=== PATIENT | female | born 1945 | race Caucasian/White ===

== ENCOUNTER 2016-07-10 04:55 | Inpatient (IN) | payer OTHER ==
[~2016-07-10] VITALS: Ht 172.7 cm; Wt 91.4 kg
[2016-07-10] VITALS (13 sets, daily range): BP systolic 126–145; BP diastolic 62–84
[~2016-07-10 04:55] MED LIST: ALPR-475 PO; LISI-170 PO; METO-99 PO; SIMV5TAB5 PO
[2016-07-10] MEDS ORDERED: PANTOPRAZOLE 80 MG in SODIUM CHLORIDE 0.9% 50 ML IVPB ONE (05:02)
[2016-07-10] MEDS ORDERED: PANTOPRAZOLE 80 MG in SODIUM CHLORIDE 0.9% 100 ML IV SCH (05:02)
[2016-07-10] MEDS ORDERED: OCTREOTIDE 500 MCG in SODIUM CHLORIDE 0.9% 249 ML IV PRN (05:02)
[2016-07-10] MEDS ORDERED: LORazepam 2 MG/ML, 1ML IVPush ONE (05:30)
[2016-07-10] MEDS ORDERED: SODIUM CHLORIDE 0.9% 1,000ML IVBOLUS ONE (05:30)
[2016-07-10] MEDS ORDERED: SODIUM CHLORIDE FLUSH 10ML SYR IVF ONE (05:30)
[2016-07-10] MEDS ORDERED: OCTREOTIDE 100MCG/ML, 1ML (0.1MG/ML) IV ONE (05:30)
[2016-07-10] MEDS ORDERED: LORazepam 2 MG/ML, 1ML ONE (05:35)
[2016-07-10] MEDS ORDERED: OCTREOTIDE 100MCG/ML, 1ML (0.1MG/ML) ONE (05:36)
[2016-07-10 05:49] LABS: HEMOGLOBIN 8.6 g/dL (11.7-16.4)
[2016-07-10] MEDS ORDERED: ONDANSETRON 2MG/ML, 2ML ONE (06:00)
[2016-07-10] MEDS ORDERED: ONDANSETRON 2MG/ML, 2ML IVPush ONE (06:00)
[2016-07-10 06:02] LABS: BLOOD UREA NITROGEN 31 mg/dL (7-18)
[2016-07-10 06:07] LABS: ASPARTATE AMINO TRANSFERASE 31 U/L (15-37)
[2016-07-10] MEDS ORDERED: CEFTRIAXONE PMX 1GM/50ML 50 ML ONE (06:55)
[2016-07-10] MEDS ORDERED: CEFTRIAXONE PMX 1GM/50ML 50 ML IV ONE (07:00)
[2016-07-10] MEDS: SODIUM CHLORIDE 0.9% 1,000 ML IV SCH ×2 (08:08→12:09)
[2016-07-10] MEDS ORDERED: ONDANSETRON ODT 4 MG PO PRN (08:30)
[2016-07-10] MEDS ORDERED: BISACODYL 10 MG SUPP PR PRN (08:30)
[2016-07-10] MEDS ORDERED: LABETALOL 5MG/ML, 20ML IV PRN (08:30)
[2016-07-10] MEDS ORDERED: ONDANSETRON 2MG/ML, 2ML IVP PRN (08:30)
[2016-07-10] MEDS ORDERED: OCTREOTIDE 500 MCG in SODIUM CHLORIDE 0.9% 249 ML IV SCH (09:00)
[2016-07-10 11:43] LABS: HEMOGLOBIN 8.7 g/dL (11.7-16.4)
[2016-07-10] MEDS: PANTOPRAZOLE 80 MG in SODIUM CHLORIDE 0.9% 100 ML IV SCH (12:09)
[2016-07-10] MEDS ORDERED: THIAMINE 100 MG, FOLIC ACID 1 MG, MVI ADULT 10 ML in SODIUM CHLORIDE 0.9% 1,000 ML IV SCH (15:30)
[2016-07-10] MEDS ORDERED: MAGNESIUM SULFATE PMX 4GM/100M 100 ML IV ONE (17:30)
[2016-07-10 18:29] LABS: HEMOGLOBIN 7.8 g/dL (11.7-16.4)
[2016-07-11] VITALS (8 sets, daily range): BP systolic 130–177; BP diastolic 75–88
[2016-07-11] MEDS: SODIUM CHLORIDE 0.9% 1,000 ML IV SCH ×3 (01:28→17:08)
[2016-07-11] MEDS: PANTOPRAZOLE 80 MG in SODIUM CHLORIDE 0.9% 100 ML IV SCH (01:40)
[2016-07-11 03:24] LABS: ASPARTATE AMINO TRANSFERASE 22 U/L (15-37); BLOOD UREA NITROGEN 20 mg/dL (7-18)
[2016-07-11 03:54] LABS: HEMOGLOBIN 8.8 g/dL (11.7-16.4)
[2016-07-11] MEDS ORDERED: OCTREOTIDE 500 MCG in SODIUM CHLORIDE 0.9% 249 ML IV SCH ×2 (04:26→04:31)
[2016-07-11] MEDS ORDERED: POTASSIUM CHLORIDE 40 MEQ in SODIUM CHLORIDE 0.9% 500 ML IV ONE (08:00)
[2016-07-11 09:20] LABS: HEMOGLOBIN 8.9 g/dL (11.7-16.4)
[2016-07-11] MEDS: CEFTRIAXONE PMX 1GM/50ML 50 ML IV SCH (09:30)
[2016-07-11] MEDS: ACETAMINOPHEN 325 MG TABLET PO PRN ×2 (10:12→16:58)
[2016-07-11] MEDS ORDERED: FENTANYL PF 100 MCG/2ML ONE (12:26)
[2016-07-11] MEDS ORDERED: MIDAZOLAM 1 MG/ML, 5ML ONE (12:26)
[2016-07-11 15:07] LABS: HEMOGLOBIN 9.1 g/dL (11.7-16.4)
[2016-07-11 15:19] LABS: IS PT STATUS REG ER OR PRE ER? NO
[2016-07-11 19:29] LABS: IS PT STATUS REG ER OR PRE ER? NO
[2016-07-11] MEDS: PANTOPROZOLE 40MG TABLET PO SCH (20:11)
[2016-07-11] MEDS: LORazepam 2 MG/ML, 1ML IVPush PRN (20:11)
[2016-07-11] MEDS: MORPHINE SULFATE 4 MG/ML, 1ML IVPush PRN ×2 (21:49→23:43)
[2016-07-12 01:19] VITALS: BP_SYST 143; BP_SYST 155; BP_SYST 167; BP_DIAS 83; BP_DIAS 91; BP_DIAS 95
[2016-07-12 01:36] LABS: IS PT STATUS REG ER OR PRE ER? NO
[2016-07-12] MEDS: MORPHINE SULFATE 4 MG/ML, 1ML IVPush PRN ×4 (02:03→22:50)
[2016-07-12] MEDS: LORazepam 2 MG/ML, 1ML IVPush PRN ×3 (05:24→13:48)
[2016-07-12 05:44] LABS: HEMOGLOBIN 8.8 g/dL (11.7-16.4)
[2016-07-12 05:57] LABS: BLOOD UREA NITROGEN 10 mg/dL (7-18)
[2016-07-12 07:00] VITALS: BP_SYST 143; BP_SYST 160; BP_SYST 163; BP_DIAS 81; BP_DIAS 93; BP_DIAS 95
[2016-07-12] MEDS: CEFTRIAXONE PMX 1GM/50ML 50 ML IV SCH (07:54)
[2016-07-12] MEDS: PANTOPROZOLE 40MG TABLET PO SCH ×2 (07:54→22:35)
[2016-07-12] MEDS ORDERED: SODIUM CHLORIDE 0.9% 1,000 ML IV SCH (08:08)
[2016-07-12 09:19] LABS: HEMOGLOBIN 9.7 g/dL (11.7-16.4)
[2016-07-12] MEDS ORDERED: DILTIAZEM 5 MG/ML, 5ML IVPush STA (10:01)
[2016-07-12] MEDS ORDERED: DILTIAZEM 125 MG in SODIUM CHLORIDE 0.9% 100 ML IV PRN (10:30)
[2016-07-12 11:10] LABS: IS PT STATUS REG ER OR PRE ER? NO
[2016-07-12 12:59] VITALS: BP_SYST 102; BP_SYST 121; BP_SYST 132; BP_DIAS 66; BP_DIAS 81; BP_DIAS 99
[2016-07-12] MEDS ORDERED: AMIODARONE 900 MG in DEXTROSE 5% 482 ML IV PRN (14:30)
[2016-07-12] MEDS ORDERED: AMIODARONE 150 MG in DEXTROSE 5% 100 ML IV ONE (14:30)
[2016-07-12] MEDS ORDERED: FILTER 0.22 MICRON FOR AMIODARONE IV PRN (14:30)
[2016-07-12 16:18] LABS: IS PT STATUS REG ER OR PRE ER? NO
[2016-07-12 20:00] VITALS: BP_SYST 138; BP_SYST 154; BP_SYST 155; BP_DIAS 84; BP_DIAS 94
[2016-07-12 22:35] LABS: IS PT STATUS REG ER OR PRE ER? NO
[2016-07-12] MEDS: SODIUM CHLORIDE 0.9% 1,000 ML IV SCH (22:36)
[2016-07-13 01:45] VITALS: BP 149/87
[2016-07-13] MEDS: MORPHINE SULFATE 4 MG/ML, 1ML IVPush PRN ×4 (01:48→20:53)
[2016-07-13 06:00] LABS: HEMOGLOBIN 8.6 g/dL (11.7-16.4)
[2016-07-13 06:08] LABS: BLOOD UREA NITROGEN 6 mg/dL (7-18)
[2016-07-13] MEDS: SODIUM CHLORIDE 0.9% 1,000 ML IV SCH (06:22)
[2016-07-13 07:16] VITALS: BP_SYST 118; BP_SYST 158; BP_DIAS 74; BP_DIAS 87; BP_DIAS 89
[2016-07-13] MEDS ORDERED: POTASSIUM CHLORIDE 20 MEQ TAB.ER.PRT PO ONE (08:00)
[2016-07-13] MEDS ORDERED: MAGNESIUM SULFATE PMX 2GM/50ML 50 ML IV ONE (08:00)
[2016-07-13] MEDS ORDERED: SODIUM CHLORIDE 0.9% 1,000 ML IV SCH (08:08)
[2016-07-13] MEDS: CEFTRIAXONE PMX 1GM/50ML 50 ML IV SCH (08:59)
[2016-07-13] MEDS: PANTOPROZOLE 40MG TABLET PO SCH ×2 (09:02→20:52)
[2016-07-13 09:36] LABS: HEMOGLOBIN 9.2 g/dL (11.7-16.4)
[2016-07-13] MEDS ORDERED: DILTIAZEM 125 MG in SODIUM CHLORIDE 0.9% 100 ML IV PRN (10:30)
[2016-07-13] MEDS: AMIODARONE 200 MG TABLET PO SCH ×2 (11:12→20:52)
[2016-07-13 12:30] VITALS: BP_SYST 153; BP_SYST 154; BP_SYST 161; BP_DIAS 85; BP_DIAS 88; BP_DIAS 89
[2016-07-13] MEDS ORDERED: GADOBUTROL 7.5 MMOL/7.5 ML PFS ONE (16:46)
[2016-07-13 19:48] VITALS: BP_SYST 168; BP_SYST 172; BP_DIAS 90; BP_DIAS 92; BP_DIAS 98
[2016-07-13] MEDS: ATORVASTATIN 80 MG TABLET PO SCH (23:32)
[2016-07-14] MEDS: ACETAMINOPHEN 325 MG TABLET PO PRN (00:01)
[2016-07-14 00:02] VITALS: BP 173/92
[2016-07-14] MEDS: LORazepam 2 MG/ML, 1ML IVPush PRN (00:02)
[2016-07-14 03:01] VITALS: BP 146/90
[2016-07-14] MEDS: MORPHINE SULFATE 4 MG/ML, 1ML IVPush PRN (05:38)
[2016-07-14 05:59] LABS: BLOOD UREA NITROGEN 3 mg/dL (7-18)
[2016-07-14 06:48] VITALS: BP_SYST 128; BP_SYST 137; BP_SYST 144; BP_DIAS 77; BP_DIAS 84; BP_DIAS 85
[2016-07-14] MEDS: AMIODARONE 200 MG TABLET PO SCH ×2 (09:42→20:24)
[2016-07-14] MEDS: PANTOPROZOLE 40MG TABLET PO SCH ×2 (09:42→20:25)
[2016-07-14] MEDS: CEFTRIAXONE PMX 1GM/50ML 50 ML IV SCH (09:42)
[2016-07-14] MEDS: DOCUSATE 100 MG CAPSULE PO PRN (09:46)
[2016-07-14] MEDS: METOPROLOL TARTRATE 50 MG TABLET PO SCH ×2 (11:48→18:08)
[2016-07-14] MEDS: LISINOPRIL 5 MG TABLET PO SCH (11:48)
[2016-07-14] MEDS: OXYcodone IR 5MG TABLET PO PRN ×3 (11:53→20:25)
[2016-07-14 12:29] LABS: PATH.CAST-FLAG NOT PRESENT; SPERM-FLAG NOT PRESENT; SRC-FLAG NOT PRESENT; XTAL-FLAG NOT PRESENT; YLC-FLAG NOT PRESENT
[2016-07-14 13:41] VITALS: BP 133/83
[2016-07-14 20:23] VITALS: BP 165/101
[2016-07-14] MEDS: ATORVASTATIN 80 MG TABLET PO SCH (20:24)
[2016-07-15] MEDS: OXYcodone IR 5MG TABLET PO PRN ×5 (02:31→20:49)
[2016-07-15 03:55] VITALS: BP 157/96
[2016-07-15 06:03] LABS: HEMOGLOBIN 9.2 g/dL (11.7-16.4)
[2016-07-15 06:14] LABS: BLOOD UREA NITROGEN 6 mg/dL (7-18)
[2016-07-15] MEDS: METOPROLOL TARTRATE 50 MG TABLET PO SCH ×2 (06:30→18:07)
[2016-07-15 06:49] VITALS: BP_SYST 147; BP_SYST 153; BP_SYST 160; BP_DIAS 81; BP_DIAS 88; BP_DIAS 99
[2016-07-15] MEDS ORDERED: MAGNESIUM SULFATE PMX 4GM/100M 100 ML IV ONE (08:30)
[2016-07-15] MEDS: CEFTRIAXONE PMX 1GM/50ML 50 ML IV SCH (08:30)
[2016-07-15] MEDS: PANTOPROZOLE 40MG TABLET PO SCH ×2 (09:18→20:49)
[2016-07-15] MEDS: LISINOPRIL 5 MG TABLET PO SCH (09:19)
[2016-07-15] MEDS: AMIODARONE 200 MG TABLET PO SCH ×2 (09:19→20:49)
[2016-07-15] MEDS: DOCUSATE 100 MG CAPSULE PO PRN ×2 (09:26→20:49)
[2016-07-15] MEDS ORDERED: GADOBUTROL 10 MMOL/10 ML PFS ONE (10:28)
[2016-07-15 12:53] VITALS: BP 132/84
[2016-07-15] MEDS: IRON SUCROSE COMPLEX 100MG/5ML IV SCH ×2 (16:30→16:35)
[2016-07-15 19:09] VITALS: BP 147/92
[2016-07-15 19:15] VITALS: BP 147/92
[2016-07-15] MEDS: ATORVASTATIN 80 MG TABLET PO SCH (20:49)
[2016-07-16 02:32] VITALS: BP 110/70
[2016-07-16] MEDS: OXYcodone IR 5MG TABLET PO PRN ×3 (03:16→17:43)
[2016-07-16 05:33] LABS: HEMOGLOBIN 8.7 g/dL (11.7-16.4)
[2016-07-16 06:02] LABS: BLOOD UREA NITROGEN 6 mg/dL (7-18)
[2016-07-16] MEDS: METOPROLOL TARTRATE 50 MG TABLET PO SCH ×2 (06:30→17:45)
[2016-07-16 08:15] VITALS: BP 116/68
[2016-07-16] MEDS ORDERED: LISINOPRIL 5 MG TABLET PO SCH (09:00)
[2016-07-16] MEDS: IRON SUCROSE COMPLEX 100MG/5ML IV SCH (09:18)
[2016-07-16] MEDS: LORazepam 2 MG/ML, 1ML IVPush PRN (09:18)
[2016-07-16] MEDS: CEFTRIAXONE PMX 1GM/50ML 50 ML IV SCH (09:18)
[2016-07-16] MEDS: PANTOPROZOLE 40MG TABLET PO SCH (09:19)
[2016-07-16] MEDS: AMIODARONE 200 MG TABLET PO SCH (09:19)
[2016-07-16] MEDS ORDERED: FLUCONAZOLE 100 MG TABLET PO ONE (12:00)
[2016-07-16 14:08] VITALS: BP 123/65
[2016-07-16] MEDS ORDERED: FLUC150T2 PO (14:39)
[2016-07-16] MEDS ORDERED: OXYC5TAB3 PO (14:39)
[2016-07-16] MEDS ORDERED: PANT40TA5 PO (14:39)
[2016-07-16] MEDS ORDERED: MULT-252 PO (14:39)
[2016-07-16] MEDS ORDERED: ATOR80TA75 PO (14:39)
[2016-07-16] MEDS ORDERED: FERR324T5 PO (14:39)
[2016-07-16] MEDS ORDERED: METO50TA82 PO (14:39)
[2016-07-16] MEDS ORDERED: AMIO200T42 PO (16:03)
== END 2016-07-16 18:50 | disposition home or self-care (01) | DRG 377 ==
LOC: ED 05:00 → EDIP 08:08 → 4EST 10:36
PROC: HZ34ZZZ Individual Counseling for Substance Abuse Treatment, Interpersonal (ICD-10-PCS; 2016-07-10)
PROC: HZ2ZZZZ Detoxification Services for Substance Abuse Treatment (ICD-10-PCS; 2016-07-10)
PROC: 30233N1 Transfusion of Nonautologous Red Blood Cells into Peripheral Vein, Percutaneous Approach (ICD-10-PCS; 2016-07-11)
PROC: 0DB78ZX Excision of Stomach, Pylorus, Via Natural or Artificial Opening Endoscopic, Diagnostic (ICD-10-PCS; principal; 2016-07-11 11:00)
DX: K25.4 Chronic or unspecified gastric ulcer with hemorrhage (principal); N17.0 Acute kidney failure with tubular necrosis; D68.9 Coagulation defect, unspecified; D62 Acute posthemorrhagic anemia; D68.69 Other thrombophilia; K70.9 Alcoholic liver disease, unspecified; I10 Essential (primary) hypertension; D69.6 Thrombocytopenia, unspecified; D53.9 Nutritional anemia, unspecified; F10.20 Alcohol dependence, uncomplicated; R73.9 Hyperglycemia, unspecified; M17.0 Bilateral primary osteoarthritis of knee; E78.5 Hyperlipidemia, unspecified; E83.42 Hypomagnesemia; E87.6 Hypokalemia; I48.91 Unspecified atrial fibrillation; K29.80 Duodenitis without bleeding; D75.89 Other specified diseases of blood and blood-forming organs; F32.9 Major depressive disorder, single episode, unspecified; F41.9 Anxiety disorder, unspecified; G89.29 Other chronic pain; H26.9 Unspecified cataract; H91.93 Unspecified hearing loss, bilateral; I83.90 Asymptomatic varicose veins of unspecified lower extremity; K44.9 Diaphragmatic hernia without obstruction or gangrene; R29.6 Repeated falls; W01.0XXA Fall on same level from slipping, tripping and stumbling without subsequent striking against object, initial encounter; Z82.49 Family history of ischemic heart disease and other diseases of the circulatory system; Z85.820 Personal history of malignant melanoma of skin; Z91.5 Personal history of self-harm; Z79.82 Long term (current) use of aspirin; Z86.73 Personal history of transient ischemic attack (TIA), and cerebral infarction without residual deficits; Z87.891 Personal history of nicotine dependence; Z90.710 Acquired absence of both cervix and uterus; Z90.49 Acquired absence of other specified parts of digestive tract; Z83.3 Family history of diabetes mellitus; Z88.1 Allergy status to other antibiotic agents; Z91.040 Latex allergy status; Z88.8 Allergy status to other drugs, medicaments and biological substances; Z71.41 Alcohol abuse counseling and surveillance of alcoholic
CPT/HCPCS: 36415; 70450; 70553; 71010; 72126; 72156; 80048; 80053; 80061; 80307; 81001; 81003; 82962; 83735; 84443; 84484; 85014; 85018; 85025; 85610; 85730; 86850; 86900; 86923; 87086; 88305; 93005; 93306; 93880; 96365; 96366; 96368; 96375; A9585; J0696; J1756; J2250; J2354; J2405; J3010; J3411; J3480; C9113; J0282; J2060; J3475; J7030; J7040; J7050; J7060; P9016

== ENCOUNTER → 2016-08-30 | Outpatient (CLI) | payer MEDICARE, OTHER ==
[~2016-08-30] MED LIST changes: +AMIO200T42 PO; +ATOR80TA75 PO; +FERR324T5 PO; +FLUC150T2 PO; +METO50TA82 PO; +MULT-252 PO; +OXYC5TAB3 PO; +PANT40TA5 PO
== END | disposition home or self-care (01) ==
LOC: CFH 10:41
PROVIDERS: ATTEND Internal Medicine
DX: R79.89 Other specified abnormal findings of blood chemistry (principal); Z90.49 Acquired absence of other specified parts of digestive tract
CPT/HCPCS: 76700

== ENCOUNTER 2016-11-26 19:25 | Emergency (ER) | payer MEDICARE, OTHER ==
[~2016-11-26] VITALS: Ht 172.7 cm; Wt 78.0 kg
[2016-11-26] MEDS ORDERED: PLEASE ENTER ALLERGIES MC SCH ×2 (20:00)
[2016-11-26] MEDS ORDERED: ASPIRIN 81 MG TABLET CHEW PO ONE (20:00)
[2016-11-26 20:13] LABS: HEMATOCRIT 36.2 % (34.6-47.8); HEMOGLOBIN 12.2 g/dL (11.7-16.4); WHITE BLOOD COUNT 4.6 x10^3/uL (3.4-10)
[2016-11-26 20:25] LABS: ASPARTATE AMINO TRANSFERASE 103 U/L (15-37); BLOOD UREA NITROGEN 7 mg/dL (7-18)
[2016-11-26 20:35] LABS: IS PT STATUS REG ER OR PRE ER? YES
[2016-11-26] MEDS ORDERED: MAALOX/HYOSCYAMINE/LIDOCAINE 45 ML BTL ONE (20:49)
[2016-11-26] MEDS ORDERED: MAALOX/HYOSCYAMINE/LIDOCAINE 45 ML BTL PO ONE (21:00)
[2016-11-26 21:49] VITALS: BP 158/87
== END 2016-11-26 22:36 | disposition home or self-care (01) ==
LOC: ED 22:30
DX: M94.0 Chondrocostal junction syndrome [Tietze] (principal); K29.20 Alcoholic gastritis without bleeding; E78.5 Hyperlipidemia, unspecified; F32.9 Major depressive disorder, single episode, unspecified; I10 Essential (primary) hypertension; Z86.73 Personal history of transient ischemic attack (TIA), and cerebral infarction without residual deficits
CPT/HCPCS: 36415; 70450; 71010; 80053; 80307; 83690; 84484; 85025; 85610; 85730; 93005; 99285

== ENCOUNTER → 2016-12-13 | Outpatient (CLI) | payer MEDICARE ==
[~2016-12-13] MED LIST changes: +ATOR-2 PO; -ATOR80TA75 PO; +REGADENOSON 0.4 MG/5 ML SYRINGE ONE
== END | disposition home or self-care (01) ==
LOC: CFH 08:16
PROVIDERS: ATTEND Internal Medicine Cardiovascular Disease
DX: I44.0 Atrioventricular block, first degree (principal)
CPT/HCPCS: 78452; 93017; A9502; J2785

== ENCOUNTER 2017-01-09 11:07 | Inpatient (IN) | payer MEDICARE ==
[~2017-01-09] VITALS: Ht 172.7 cm; Wt 87.5 kg
[~2017-01-09 11:07] MED LIST changes: -REGADENOSON 0.4 MG/5 ML SYRINGE ONE
[2017-01-09] MEDS ORDERED: SODIUM CHLORIDE FLUSH 10ML SYR IVF ONE (12:00)
[2017-01-09] MEDS ORDERED: AMPICILLIN/SULBACTAM 3 GM in SODIUM CHLORIDE 0.9% 100 ML IVPB ONE (12:00)
[2017-01-09] MEDS ORDERED: SODIUM CHLORIDE 0.9% 1,000ML IVBOLUS ONE (12:00)
[2017-01-09 12:09] LABS: HEMATOCRIT 38.8 % (34.6-47.8); HEMOGLOBIN 13.2 g/dL (11.7-16.4); WHITE BLOOD COUNT 6.3 x10^3/uL (3.4-10)
[2017-01-09 12:23] LABS: ASPARTATE AMINO TRANSFERASE 67 U/L (15-37); BLOOD UREA NITROGEN 13 mg/dL (7-18)
[2017-01-09] MEDS ORDERED: SODIUM CHLORIDE FLUSH 10ML SYR IVF PRN (13:00)
[2017-01-09] MEDS ORDERED: morphine SULFATE 10 MG/ML, 1ML IVPush PRN (15:00)
[2017-01-09] MEDS ORDERED: ONDANSETRON ODT 4 MG PO PRN (15:00)
[2017-01-09] MEDS ORDERED: LABETALOL 5MG/ML, 20ML IVPush PRN (15:00)
[2017-01-09] MEDS ORDERED: HEPARIN 5,000 UNITS/ML, 1ML SQ SCH (15:00)
[2017-01-09] MEDS ORDERED: ONDANSETRON 2MG/ML, 2ML IVPush PRN (15:00)
[2017-01-09] MEDS ORDERED: ENALAPRILAT 1.25 MG/ML, 2ML IVPush PRN (15:00)
[2017-01-09 18:24] VITALS: BP 169/88
[2017-01-09] MEDS: METOPROLOL TARTRATE 50 MG TABLET PO SCH (18:49)
[2017-01-09] MEDS: AMIODARONE 200 MG TABLET PO SCH (21:04)
[2017-01-09] MEDS: ATORVASTATIN 80 MG TABLET PO SCH (21:04)
[2017-01-09] MEDS: HYDROcodone/APAP 5/325 TABLET PO PRN (21:04)
[2017-01-09] MEDS: AMPICILLIN/SULBACTAM 3 GM in SODIUM CHLORIDE 0.9% 100 ML IV SCH (21:04)
[2017-01-09] MEDS: PANTOPROZOLE 40MG TABLET PO SCH (21:04)
[2017-01-10 01:35] VITALS: BP 111/70
[2017-01-10] MEDS: HYDROcodone/APAP 5/325 TABLET PO PRN ×3 (01:44→19:31)
[2017-01-10] MEDS: AMPICILLIN/SULBACTAM 3 GM in SODIUM CHLORIDE 0.9% 100 ML IV SCH ×4 (03:03→21:27)
[2017-01-10] MEDS: TEMAZEPAM 15 MG CAPSULE PO PRN ×2 (03:03→21:27)
[2017-01-10 04:42] LABS: HEMATOCRIT 33.1 % (34.6-47.8); HEMOGLOBIN 11.4 g/dL (11.7-16.4); WHITE BLOOD COUNT 4.6 x10^3/uL (3.4-10)
[2017-01-10 04:54] LABS: BLOOD UREA NITROGEN 15 mg/dL (7-18)
[2017-01-10 04:58] LABS: ASPARTATE AMINO TRANSFERASE 47 U/L (15-37)
[2017-01-10] MEDS: METOPROLOL TARTRATE 50 MG TABLET PO SCH ×2 (06:00→17:30)
[2017-01-10 07:05] VITALS: BP 111/68
[2017-01-10] MEDS: LISINOPRIL 20 MG TABLET PO SCH (09:45)
[2017-01-10] MEDS: PANTOPROZOLE 40MG TABLET PO SCH ×2 (09:46→21:27)
[2017-01-10] MEDS: AMIODARONE 200 MG TABLET PO SCH ×2 (09:47→21:27)
[2017-01-10 13:36] VITALS: BP 111/72
[2017-01-10 17:25] VITALS: BP 154/83
[2017-01-10 19:50] VITALS: BP 139/79
[2017-01-10] MEDS: ATORVASTATIN 80 MG TABLET PO SCH (21:27)
[2017-01-11] MEDS: HYDROcodone/APAP 5/325 TABLET PO PRN ×4 (00:03→21:07)
[2017-01-11 01:35] VITALS: BP 139/83
[2017-01-11] MEDS: AMPICILLIN/SULBACTAM 3 GM in SODIUM CHLORIDE 0.9% 100 ML IV SCH ×4 (03:03→21:07)
[2017-01-11] MEDS: METOPROLOL TARTRATE 50 MG TABLET PO SCH ×2 (05:11→17:56)
[2017-01-11 07:45] VITALS: BP 136/78
[2017-01-11] MEDS ORDERED: POTASSIUM CHLORIDE 20 MEQ TAB.ER.PRT PO ONE (08:00)
[2017-01-11] MEDS ORDERED: [UNRECOGNIZED DRUG - OTHER] PO SCH (09:00)
[2017-01-11] MEDS: PANTOPROZOLE 40MG TABLET PO SCH ×2 (09:28→21:07)
[2017-01-11] MEDS: AMIODARONE 200 MG TABLET PO SCH ×2 (09:28→21:07)
[2017-01-11] MEDS: LISINOPRIL 20 MG TABLET PO SCH (09:29)
[2017-01-11] MEDS ORDERED: DIPHENHYDRAMINE 25 MG CAPSULE ONE (10:42)
[2017-01-11] MEDS: DIPHENHYDRAMINE 25 MG CAPSULE PO PRN ×2 (10:44→10:56)
[2017-01-11 15:42] VITALS: BP 164/89
[2017-01-11 19:15] VITALS: BP 137/84
[2017-01-11] MEDS: ATORVASTATIN 80 MG TABLET PO SCH (21:07)
[2017-01-11] MEDS: TEMAZEPAM 15 MG CAPSULE PO PRN (23:29)
[2017-01-12 01:11] VITALS: BP 122/71
[2017-01-12] MEDS: AMPICILLIN/SULBACTAM 3 GM in SODIUM CHLORIDE 0.9% 100 ML IV SCH ×2 (02:55→12:02)
[2017-01-12 04:54] LABS: HEMATOCRIT 34.3 % (34.6-47.8); HEMOGLOBIN 11.4 g/dL (11.7-16.4); WHITE BLOOD COUNT 4.6 x10^3/uL (3.4-10)
[2017-01-12 05:01] VITALS: BP 138/75
[2017-01-12] MEDS: METOPROLOL TARTRATE 50 MG TABLET PO SCH (05:02)
[2017-01-12] MEDS: HYDROcodone/APAP 5/325 TABLET PO PRN ×2 (05:02→12:09)
[2017-01-12 05:21] LABS: ASPARTATE AMINO TRANSFERASE 47 U/L (15-37); BLOOD UREA NITROGEN 6 mg/dL (7-18)
[2017-01-12 07:28] VITALS: BP 131/82
[2017-01-12] MEDS ORDERED: NEUTRA PHOS K 250 MG TABLET PO SCH (09:00)
[2017-01-12] MEDS ORDERED: AMOX1TAB64 PO (10:08)
[2017-01-12] MEDS: PANTOPROZOLE 40MG TABLET PO SCH (11:08)
[2017-01-12] MEDS: LISINOPRIL 20 MG TABLET PO SCH (11:08)
[2017-01-12] MEDS: AMIODARONE 200 MG TABLET PO SCH (11:08)
[2017-01-12] MEDS ORDERED: LISINOPRIL 10 MG TABLET PO SCH (11:13)
[2017-01-12 14:04] VITALS: BP 128/75
== END 2017-01-12 15:00 | disposition home or self-care (01) | DRG 603 ==
LOC: ED 12:07 → EDIP 12:58 → 3NW 18:02 → DCLOUNGE 01-12 14:30
PROVIDERS: ADMIT Internal Medicine; ATTEND Internal Medicine
DX: L03.114 Cellulitis of left upper limb (principal); I48.2 Chronic atrial fibrillation; E44.1 Mild protein-calorie malnutrition; K70.10 Alcoholic hepatitis without ascites; F13.20 Sedative, hypnotic or anxiolytic dependence, uncomplicated; S50.872A Other superficial bite of left forearm, initial encounter; S61.452A Open bite of left hand, initial encounter; E78.5 Hyperlipidemia, unspecified; E83.39 Other disorders of phosphorus metabolism; I10 Essential (primary) hypertension; N28.9 Disorder of kidney and ureter, unspecified; W55.01XA Bitten by cat, initial encounter; Z86.73 Personal history of transient ischemic attack (TIA), and cerebral infarction without residual deficits; Z87.11 Personal history of peptic ulcer disease; Z68.29 Body mass index [BMI] 29.0-29.9, adult
CPT/HCPCS: 36415; 80053; 83605; 83735; 84100; 84145; 85025; 87040; J0295; Q0162; J7030; Q0163

== ENCOUNTER 2017-01-13 08:33 | Inpatient (IN) | payer MEDICARE ==
[~2017-01-13] VITALS: Ht 172.7 cm; Wt 91.3 kg
[~2017-01-13 08:33] MED LIST changes: +AMOX1TAB64 PO
[2017-01-13] MEDS ORDERED: MORPHINE SULFATE 4 MG/ML, 1ML IVPush PRN (09:30)
[2017-01-13] MEDS ORDERED: SODIUM CHLORIDE FLUSH 10ML SYR IVF ONE (09:30)
[2017-01-13] MEDS ORDERED: SODIUM CHLORIDE 0.9% 1,000ML IVBOLUS ONE (09:30)
[2017-01-13] MEDS ORDERED: FAMOTIDINE 20 MG/2 ML IVP ONE (09:30)
[2017-01-13] MEDS ORDERED: ONDANSETRON 2MG/ML, 2ML IVPush ONE (09:30)
[2017-01-13] MEDS ORDERED: ONDANSETRON 2MG/ML, 2ML ONE (09:31)
[2017-01-13] MEDS ORDERED: MORPHINE SULFATE 4 MG/ML, 1ML ONE (09:31)
[2017-01-13] MEDS ORDERED: FAMOTIDINE 20 MG/2 ML ONE (09:31)
[2017-01-13 10:09] LABS: ASPARTATE AMINO TRANSFERASE 57 U/L (15-37); BLOOD UREA NITROGEN 7 mg/dL (7-18)
[2017-01-13 11:08] LABS: HEMATOCRIT 43.4 % (34.6-47.8); HEMOGLOBIN 14.6 g/dL (11.7-16.4); WHITE BLOOD COUNT 6.8 x10^3/uL (3.4-10)
[2017-01-13] MEDS ORDERED: TEMAZEPAM 15 MG CAPSULE PO PRN (13:00)
[2017-01-13] MEDS ORDERED: ENALAPRILAT 1.25 MG/ML, 2ML IVPush PRN (13:00)
[2017-01-13] MEDS ORDERED: LABETALOL 5MG/ML, 20ML IVPush PRN (13:00)
[2017-01-13 14:17] VITALS: BP 153/93
[2017-01-13] MEDS: AMPICILLIN/SULBACTAM 3 GM in SODIUM CHLORIDE 0.9% 100 ML IV SCH (17:19)
[2017-01-13] MEDS: LISINOPRIL 20 MG TABLET PO SCH (17:19)
[2017-01-13] MEDS: SODIUM CHLORIDE 0.9% 1,000 ML IV SCH (17:19)
[2017-01-13 18:38] VITALS: BP 153/93
[2017-01-13 19:38] VITALS: BP 138/81
[2017-01-13] MEDS: METOPROLOL TARTRATE 50 MG TABLET PO SCH (20:36)
[2017-01-13] MEDS: AMIODARONE 200 MG TABLET PO SCH (20:36)
[2017-01-13] MEDS: ATORVASTATIN 80 MG TABLET PO SCH (20:36)
[2017-01-13] MEDS: ONDANSETRON 2MG/ML, 2ML IVPush PRN (20:36)
[2017-01-13] MEDS: PANTOPROZOLE 40MG TABLET PO SCH (20:36)
[2017-01-13] MEDS: morphine SULFATE 10 MG/ML, 1ML IVPush PRN (20:37)
[2017-01-14 02:15] VITALS: BP 135/81
[2017-01-14] MEDS: SODIUM CHLORIDE 0.9% 1,000 ML IV SCH (02:33)
[2017-01-14] MEDS: AMPICILLIN/SULBACTAM 3 GM in SODIUM CHLORIDE 0.9% 100 ML IV SCH ×3 (02:34→17:13)
[2017-01-14] MEDS: ONDANSETRON 2MG/ML, 2ML IVPush PRN ×4 (02:44→23:23)
[2017-01-14] MEDS: morphine SULFATE 10 MG/ML, 1ML IVPush PRN ×4 (02:44→20:01)
[2017-01-14 04:58] LABS: HEMATOCRIT 31.1 % (34.6-47.8); HEMOGLOBIN 10.5 g/dL (11.7-16.4); WHITE BLOOD COUNT 4.3 x10^3/uL (3.4-10)
[2017-01-14 05:05] LABS: BLOOD UREA NITROGEN 7 mg/dL (7-18)
[2017-01-14 05:10] LABS: ASPARTATE AMINO TRANSFERASE 33 U/L (15-37)
[2017-01-14 07:35] VITALS: BP 153/88
[2017-01-14] MEDS: PANTOPROZOLE 40MG TABLET PO SCH ×2 (08:30→20:01)
[2017-01-14] MEDS: AMIODARONE 200 MG TABLET PO SCH ×2 (08:30→20:01)
[2017-01-14] MEDS: LISINOPRIL 20 MG TABLET PO SCH (08:30)
[2017-01-14] MEDS: METOPROLOL TARTRATE 50 MG TABLET PO SCH ×2 (08:30→17:13)
[2017-01-14] MEDS ORDERED: MAGNESIUM SULFATE PMX 4GM/100M 100 ML IV ONE (09:00)
[2017-01-14] MEDS: MAGNESIUM OXIDE 400 MG TABLET PO SCH ×2 (09:51→20:01)
[2017-01-14] MEDS: NEUTRA PHOS K 250 MG TABLET PO SCH ×3 (09:52→20:01)
[2017-01-14] MEDS: POTASSIUM CHLORIDE 20 MEQ TAB.ER.PRT PO SCH ×2 (09:52→17:13)
[2017-01-14] MEDS ORDERED: OMNIPAQUE 350 MG/ML, 100ML BOTTLE ONE (12:43)
[2017-01-14 14:18] VITALS: BP 145/95
[2017-01-14] MEDS: ATORVASTATIN 80 MG TABLET PO SCH (20:01)
[2017-01-14 20:34] VITALS: BP 136/85
[2017-01-14] MEDS: DIPHENHYDRAMINE 25 MG CAPSULE PO PRN (23:23)
[2017-01-15] MEDS: AMPICILLIN/SULBACTAM 3 GM in SODIUM CHLORIDE 0.9% 100 ML IV SCH ×3 (01:11→16:08)
[2017-01-15 01:30] VITALS: BP 111/74
[2017-01-15 05:02] LABS: BLOOD UREA NITROGEN 5 mg/dL (7-18)
[2017-01-15 05:04] LABS: HEMATOCRIT 31.5 % (34.6-47.8); HEMOGLOBIN 10.7 g/dL (11.7-16.4); WHITE BLOOD COUNT 5.2 x10^3/uL (3.4-10)
[2017-01-15 05:05] LABS: ASPARTATE AMINO TRANSFERASE 53 U/L (15-37)
[2017-01-15] MEDS: morphine SULFATE 10 MG/ML, 1ML IVPush PRN ×4 (05:21→23:54)
[2017-01-15] MEDS: METOPROLOL TARTRATE 50 MG TABLET PO SCH ×2 (05:51→18:13)
[2017-01-15 06:51] VITALS: BP 127/78
[2017-01-15] MEDS: POTASSIUM CHLORIDE 20 MEQ TAB.ER.PRT PO SCH ×2 (08:44→16:09)
[2017-01-15] MEDS: LISINOPRIL 20 MG TABLET PO SCH (08:45)
[2017-01-15] MEDS: ONDANSETRON 2MG/ML, 2ML IVPush PRN ×3 (08:45→23:54)
[2017-01-15] MEDS: NEUTRA PHOS K 250 MG TABLET PO SCH ×3 (08:45→20:44)
[2017-01-15] MEDS: AMIODARONE 200 MG TABLET PO SCH ×2 (08:45→20:45)
[2017-01-15] MEDS: MAGNESIUM OXIDE 400 MG TABLET PO SCH ×2 (08:45→20:44)
[2017-01-15] MEDS: PANTOPROZOLE 40MG TABLET PO SCH ×2 (08:45→20:44)
[2017-01-15] MEDS: OXYcodone IR 5MG TABLET PO PRN ×2 (08:48→16:07)
[2017-01-15 13:25] VITALS: BP 150/96
[2017-01-15] MEDS: ONDANSETRON ODT 4 MG PO PRN ×2 (13:49→19:41)
[2017-01-15] MEDS ORDERED: POTASSIUM PHOSPHATE 44 MEQ in SODIUM CHLORIDE 0.9% 500 ML IV ONE (15:30)
[2017-01-15 20:00] VITALS: BP 153/93
[2017-01-15] MEDS: DIPHENHYDRAMINE 25 MG CAPSULE PO PRN (21:46)
[2017-01-15] MEDS: ATORVASTATIN 80 MG TABLET PO SCH (21:46)
[2017-01-16 01:19] VITALS: BP 124/79
[2017-01-16] MEDS: AMPICILLIN/SULBACTAM 3 GM in SODIUM CHLORIDE 0.9% 100 ML IV SCH ×3 (01:41→17:45)
[2017-01-16] MEDS: morphine SULFATE 10 MG/ML, 1ML IVPush PRN ×4 (03:30→20:30)
[2017-01-16 05:08] LABS: BLOOD UREA NITROGEN 5 mg/dL (7-18)
[2017-01-16] MEDS: METOPROLOL TARTRATE 50 MG TABLET PO SCH ×2 (06:01→17:44)
[2017-01-16 07:20] VITALS: BP 127/77
[2017-01-16] MEDS: POTASSIUM CHLORIDE 20 MEQ TAB.ER.PRT PO SCH (07:30)
[2017-01-16] MEDS: LISINOPRIL 20 MG TABLET PO SCH (09:00)
[2017-01-16] MEDS: LOPERAMIDE 2 MG CAPSULE PO PRN (09:14)
[2017-01-16] MEDS: NEUTRA PHOS K 250 MG TABLET PO SCH ×3 (09:14→19:38)
[2017-01-16] MEDS: ONDANSETRON 2MG/ML, 2ML IVPush PRN (09:14)
[2017-01-16] MEDS: PANTOPROZOLE 40MG TABLET PO SCH ×2 (09:15→20:29)
[2017-01-16] MEDS: AMIODARONE 200 MG TABLET PO SCH ×2 (09:15→20:29)
[2017-01-16] MEDS: MAGNESIUM OXIDE 400 MG TABLET PO SCH ×2 (09:15→20:28)
[2017-01-16 13:54] VITALS: BP 157/96
[2017-01-16] MEDS: ATORVASTATIN 80 MG TABLET PO SCH (20:28)
[2017-01-16 20:36] VITALS: BP 154/91
[2017-01-17] MEDS: AMPICILLIN/SULBACTAM 3 GM in SODIUM CHLORIDE 0.9% 100 ML IV SCH ×3 (01:25→17:05)
[2017-01-17 02:00] VITALS: BP 152/93
[2017-01-17] MEDS: ONDANSETRON ODT 4 MG PO PRN (03:39)
[2017-01-17] MEDS: morphine SULFATE 10 MG/ML, 1ML IVPush PRN ×3 (03:39→20:31)
[2017-01-17] MEDS: METOPROLOL TARTRATE 50 MG TABLET PO SCH ×2 (06:07→17:09)
[2017-01-17 06:41] LABS: BLOOD UREA NITROGEN 5 mg/dL (7-18)
[2017-01-17] MEDS: SODIUM CHLORIDE 0.9% 1,000 ML IV SCH ×2 (08:30→15:47)
[2017-01-17] MEDS ORDERED: POTASSIUM PHOSPHATE 44 MEQ in SODIUM CHLORIDE 0.9% 500 ML IV ONE (08:30)
[2017-01-17] MEDS ORDERED: LISINOPRIL 5 MG TABLET PO SCH ×2 (09:00)
[2017-01-17] MEDS: LISINOPRIL 20 MG TABLET PO SCH ×2 (09:00→20:33)
[2017-01-17 09:25] VITALS: BP 132/82
[2017-01-17] MEDS: AMIODARONE 200 MG TABLET PO SCH ×2 (09:35→20:31)
[2017-01-17] MEDS: MAGNESIUM OXIDE 400 MG TABLET PO SCH ×2 (09:36→20:31)
[2017-01-17] MEDS: NEUTRA PHOS K 250 MG TABLET PO SCH ×3 (09:36→20:32)
[2017-01-17] MEDS: PANTOPROZOLE 40MG TABLET PO SCH ×2 (09:38→20:31)
[2017-01-17] MEDS: OXYcodone IR 5MG TABLET PO PRN (09:38)
[2017-01-17] MEDS: LOPERAMIDE 2 MG CAPSULE PO PRN (10:42)
[2017-01-17 15:30] VITALS: BP 159/98
[2017-01-17 19:55] VITALS: BP 164/95
[2017-01-17] MEDS: ATORVASTATIN 80 MG TABLET PO SCH (20:31)
[2017-01-17] MEDS ORDERED: LISINOPRIL 20 MG TABLET PO SCH (21:00)
[2017-01-18] MEDS: AMPICILLIN/SULBACTAM 3 GM in SODIUM CHLORIDE 0.9% 100 ML IV SCH ×3 (01:20→17:00)
[2017-01-18] MEDS: SODIUM CHLORIDE 0.9% 1,000 ML IV SCH ×3 (01:21→16:17)
[2017-01-18 01:54] VITALS: BP 154/98
[2017-01-18] MEDS: morphine SULFATE 10 MG/ML, 1ML IVPush PRN (02:19)
[2017-01-18] MEDS: METOPROLOL TARTRATE 50 MG TABLET PO SCH ×2 (05:13→17:08)
[2017-01-18 06:05] LABS: BLOOD UREA NITROGEN 5 mg/dL (7-18)
[2017-01-18 07:40] VITALS: BP 148/98
[2017-01-18] MEDS: LISINOPRIL 20 MG TABLET PO SCH (09:00)
[2017-01-18] MEDS ORDERED: LISINOPRIL 10 MG TABLET PO SCH (09:00)
[2017-01-18] MEDS: AMIODARONE 200 MG TABLET PO SCH (09:44)
[2017-01-18] MEDS: NEUTRA PHOS K 250 MG TABLET PO SCH ×2 (09:45→17:08)
[2017-01-18] MEDS: PANTOPROZOLE 40MG TABLET PO SCH (09:45)
[2017-01-18] MEDS: MAGNESIUM OXIDE 400 MG TABLET PO SCH (09:45)
[2017-01-18 13:28] VITALS: BP 140/95
[2017-01-18] MEDS ORDERED: MAGN400T26 PO (15:10)
== END 2017-01-18 17:26 | disposition home or self-care (01) | DRG 371 ==
LOC: ED 10:44 → EDIP 11:38 → INTOOBSV 11:38 → 3NE 14:07 → OBSVTOIN 15:50 → 3NE 01-16 16:46
PROVIDERS: ADMIT Internal Medicine; ATTEND Internal Medicine
DX: A04.9 Bacterial intestinal infection, unspecified (principal); N17.0 Acute kidney failure with tubular necrosis; E44.0 Moderate protein-calorie malnutrition; E87.5 Hyperkalemia; F13.20 Sedative, hypnotic or anxiolytic dependence, uncomplicated; I48.91 Unspecified atrial fibrillation; I13.0 Hypertensive heart and chronic kidney disease with heart failure and stage 1 through stage 4 chronic kidney disease, or unspecified chronic kidney disease; I50.9 Heart failure, unspecified; R13.10 Dysphagia, unspecified; F10.988 Alcohol use, unspecified with other alcohol-induced disorder; L03.114 Cellulitis of left upper limb; K70.10 Alcoholic hepatitis without ascites; E78.5 Hyperlipidemia, unspecified; N18.2 Chronic kidney disease, stage 2 (mild); Z88.8 Allergy status to other drugs, medicaments and biological substances; Z68.30 Body mass index [BMI] 30.0-30.9, adult; E86.0 Dehydration; F41.1 Generalized anxiety disorder; W55.01XA Bitten by cat, initial encounter; Z86.73 Personal history of transient ischemic attack (TIA), and cerebral infarction without residual deficits; Z87.11 Personal history of peptic ulcer disease
CPT/HCPCS: 36415; 74160; 74220; 80048; 80053; 81003; 83690; 83735; 84100; 85025; 87046; 87324; 87899; 89055; 96361; 96374; 96375; G0378; J0295; J2405; Q0162; Q9967; J2270; J3475; J7030; J7040; Q0163; S0028

== ENCOUNTER 2017-09-17 17:41 | Inpatient (IN) | payer MEDICARE ==
[~2017-09-17] VITALS: Ht 172.7 cm; Wt 92.6 kg
[~2017-09-17 17:41] MED LIST changes: +MAGN400T26 PO
[2017-09-17 18:34] LABS: BASOPHILS # (AUTO) 0.01 x10^3/uL (0-0.1); BASOPHILS % (AUTO) 0 % (0-1); EOSINOPHILS # (AUTO) 0.01 x10^3/uL (0-0.4); EOSINOPHILS % (AUTO) 0 % (1-7); LYMPHOCYTES # (AUTO) 0.39 x10^3/uL (1-3.4); LYMPHOCYTES % (AUTO) 5 % (22-44); MD NO; MEAN CORPUSCULAR HEMOGLOBIN 33.2 pg (27.0-34.8); MEAN CORPUSCULAR HGB CONC 32.9 g/dL (32.4-35.8); MEAN CORPUSCULAR VOLUME 100.6 fL (80-100); MEAN PLATELET VOLUME 7.3 fL (7.4-10.4); MONOCYTES # (AUTO) 0.33 x10^3/uL (0.2-0.8); MONOCYTES % (AUTO) 5 % (2-9); NEUTROPHILS # (AUTO) 6.45 x10^3/uL (1.8-6.8); NEUTROPHILS % (AUTO) 90 % (42-75); PLATELET COUNT 209 x10^3/uL (130-400); RED BLOOD COUNT 3.52 x10^6/uL (3.82-5.3); RED CELL DISTRIBUTION WIDTH 20.5 % (9.6-15.2)
[2017-09-17 18:44] LABS: ALANINE AMINOTRANSFERASE 86 U/L (12-78); ALBUMIN 3.8 g/dL (3.4-5.0); ANION GAP 9 mmol/L (5-15); CALCIUM 8.9 mg/dL (8.5-10.1); CHLORIDE 98 mmol/L (98-107); CREATININE 1.13 mg/dL (0.55-1.02)
[2017-09-17 18:46] LABS: ALKALINE PHOSPHATASE 105 U/L (45-117); BILIRUBIN,TOTAL 0.4 mg/dL (0.2-1.0); TOTAL PROTEIN 8.1 g/dL (6.4-8.2)
[2017-09-17 18:58] LABS: MICROSCOPIC NOT IND
[2017-09-17] MEDS ORDERED: POTASSIUM CHLORIDE 40 MEQ in SODIUM CHLORIDE 0.9% 500 ML IV ONE (19:00)
[2017-09-17] MEDS ORDERED: AZITHROMYCIN 500 MG in SODIUM CHLORIDE 0.9% 250 ML IV ONE (19:00)
[2017-09-17 19:20] LABS: CULTURE INDICATED? NO
[2017-09-17] MEDS ORDERED: CEFTRIAXONE PMX 1GM/50ML 50 ML ONE (19:26)
[2017-09-17] MEDS ORDERED: NS + 40MEQ KCL 1,000 ML IV ONE ×2 (19:27→19:30)
[2017-09-17] MEDS: D5%-0.45% NACL 1,000 ML IV SCH (19:35)
[2017-09-17] MEDS: CEFTRIAXONE PMX 1GM/50ML 50 ML IV ONE ×2 (19:36→20:23)
[2017-09-17] MEDS ORDERED: CEFTRIAXONE PMX 1GM/50ML 50 ML IV SCH (20:00)
[2017-09-17] MEDS ORDERED: AZITHROMYCIN 500 MG in SODIUM CHLORIDE 0.9% 250 ML IV SCH (20:00)
[2017-09-17] MEDS ORDERED: ONDANSETRON 2MG/ML, 2ML IVPush PRN (20:30)
[2017-09-17] MEDS ORDERED: DOCUSATE 100 MG CAPSULE PO PRN (20:30)
[2017-09-17] MEDS ORDERED: POLYETHYLENE GLYCOL 17 GM PACKET PO PRN (20:30)
[2017-09-17 22:41] VITALS: BP 143/80
[2017-09-17 22:51] VITALS: BP 143/80
[2017-09-17] MEDS: FAMOTIDINE 20 MG TABLET PO SCH (23:55)
[2017-09-17] MEDS: NS + 20MEQ KCL 1,000 ML IV SCH (23:55)
[2017-09-17] MEDS: ACETAMINOPHEN 325 MG TABLET PO PRN (23:56)
[2017-09-17] MEDS: ATORVASTATIN 80 MG TABLET PO SCH (23:56)
[2017-09-17] MEDS: AMIODARONE 200 MG TABLET PO SCH (23:56)
[2017-09-18] MEDS: ENOXAPARIN 40 MG/0.4 ML SQ SCH ×2 (00:04→20:04)
[2017-09-18 00:12] VITALS: BP 172/86
[2017-09-18] MEDS: D5%-0.45% NACL 1,000 ML IV SCH ×3 (02:21→16:55)
[2017-09-18] MEDS: METOPROLOL TARTRATE 50 MG TABLET PO SCH ×2 (05:26→17:00)
[2017-09-18 05:43] LABS: ANION GAP 6 mmol/L (5-15); CALCIUM 7.7 mg/dL (8.5-10.1); CHLORIDE 107 mmol/L (98-107); CREATININE 0.94 mg/dL (0.55-1.02)
[2017-09-18 07:02] VITALS: BP 150/91
[2017-09-18] MEDS: SENNA/DOCUSATE TABLET PO SCH (09:00)
[2017-09-18] MEDS: AMIODARONE 200 MG TABLET PO SCH ×2 (09:30→20:04)
[2017-09-18] MEDS: NS + 20MEQ KCL 1,000 ML IV SCH (09:30)
[2017-09-18] MEDS: FAMOTIDINE 20 MG TABLET PO SCH ×2 (09:34→20:04)
[2017-09-18] MEDS: LISINOPRIL 20 MG TABLET PO SCH (09:34)
[2017-09-18 12:58] VITALS: BP 148/80
[2017-09-18] MEDS: IBUPROFEN 200 MG TABLET PO PRN (18:18)
[2017-09-18 19:43] VITALS: BP 168/96
[2017-09-18] MEDS: ATORVASTATIN 80 MG TABLET PO SCH (20:04)
[2017-09-18] MEDS: AZITHROMYCIN 500 MG TABLET PO SCH (20:04)
[2017-09-18] MEDS: CEFTRIAXONE 1,000 MG IM SCH (20:05)
[2017-09-18] MEDS: ACETAMINOPHEN 325 MG TABLET PO PRN (22:27)
[2017-09-19 01:19] VITALS: BP 172/94
[2017-09-19] MEDS: OXYcodone IR 5MG TABLET PO PRN ×3 (03:21→18:40)
[2017-09-19] MEDS: METOPROLOL TARTRATE 50 MG TABLET PO SCH ×2 (05:56→18:33)
[2017-09-19 06:46] VITALS: BP 173/98
[2017-09-19] MEDS: FAMOTIDINE 20 MG TABLET PO SCH ×2 (07:53→20:06)
[2017-09-19] MEDS: SENNA/DOCUSATE TABLET PO SCH (07:53)
[2017-09-19] MEDS: AMIODARONE 200 MG TABLET PO SCH ×2 (07:53→20:06)
[2017-09-19] MEDS: LISINOPRIL 20 MG TABLET PO SCH (07:53)
[2017-09-19 08:11] LABS: ANION GAP 10 mmol/L (5-15); CALCIUM 8.3 mg/dL (8.5-10.1); CHLORIDE 106 mmol/L (98-107); CREATININE 1.12 mg/dL (0.55-1.02)
[2017-09-19 08:47] LABS: HEMOGLOBIN A1C 4.5 % (4.2-6.3)
[2017-09-19 15:00] VITALS: BP 139/81
[2017-09-19] MEDS: AZITHROMYCIN 500 MG TABLET PO SCH (18:32)
[2017-09-19] MEDS: CEFTRIAXONE 1,000 MG IM SCH (18:37)
[2017-09-19 19:17] VITALS: BP 122/78
[2017-09-19] MEDS: ATORVASTATIN 80 MG TABLET PO SCH (20:06)
[2017-09-19] MEDS: ENOXAPARIN 40 MG/0.4 ML SQ SCH (20:06)
[2017-09-19] MEDS ORDERED: ONDANSETRON 4 MG TABLET PO PRN (20:30)
[2017-09-20 01:10] VITALS: BP 162/92
[2017-09-20] MEDS: OXYcodone IR 5MG TABLET PO PRN ×3 (03:02→20:38)
[2017-09-20] MEDS: METOPROLOL TARTRATE 50 MG TABLET PO SCH ×2 (06:15→17:11)
[2017-09-20 07:57] VITALS: BP 135/82
[2017-09-20] MEDS: AMIODARONE 200 MG TABLET PO SCH ×2 (08:32→21:08)
[2017-09-20] MEDS: LISINOPRIL 20 MG TABLET PO SCH (08:32)
[2017-09-20] MEDS: FAMOTIDINE 20 MG TABLET PO SCH ×2 (08:32→21:08)
[2017-09-20] MEDS: SENNA/DOCUSATE TABLET PO SCH (08:33)
[2017-09-20] MEDS: ONDANSETRON 4 MG TABLET PO PRN ×2 (08:45→20:37)
[2017-09-20] MEDS ORDERED: CEFD300C37 PO (14:00)
[2017-09-20 15:06] VITALS: BP 135/75
[2017-09-20] MEDS: IBUPROFEN 200 MG TABLET PO PRN (17:11)
[2017-09-20 19:43] VITALS: BP 125/77
[2017-09-20] MEDS: ATORVASTATIN 80 MG TABLET PO SCH (21:08)
[2017-09-20] MEDS: AZITHROMYCIN 500 MG TABLET PO SCH (21:08)
[2017-09-20] MEDS: ENOXAPARIN 40 MG/0.4 ML SQ SCH (21:08)
[2017-09-20] MEDS: CEFTRIAXONE 1,000 MG IM SCH (21:08)
[2017-09-21 01:03] VITALS: BP 106/63
[2017-09-21] MEDS: METOPROLOL TARTRATE 50 MG TABLET PO SCH ×2 (06:29→18:00)
[2017-09-21 07:24] VITALS: BP 96/60
[2017-09-21] MEDS: SENNA/DOCUSATE TABLET PO SCH (09:00)
[2017-09-21] MEDS: FAMOTIDINE 20 MG TABLET PO SCH ×2 (09:00→20:22)
[2017-09-21] MEDS: LISINOPRIL 20 MG TABLET PO SCH (09:00)
[2017-09-21] MEDS ORDERED: LISINOPRIL 5 MG TABLET ONE (09:30)
[2017-09-21] MEDS ORDERED: LISINOPRIL 10 MG TABLET ONE (09:32)
[2017-09-21] MEDS: ONDANSETRON 4 MG TABLET PO PRN (09:38)
[2017-09-21] MEDS: OXYcodone IR 5MG TABLET PO PRN ×2 (09:38→20:29)
[2017-09-21] MEDS: AMIODARONE 200 MG TABLET PO SCH ×2 (09:39→20:22)
[2017-09-21] MEDS ORDERED: MECLIZINE CHEWABLE 25 MG TAB PO PRN (10:30)
[2017-09-21] MEDS: CEFDINIR 300 MG CAPSULE PO SCH ×2 (12:42→20:22)
[2017-09-21 14:28] VITALS: BP 99/60
[2017-09-21 19:09] VITALS: BP 134/81
[2017-09-21] MEDS: ATORVASTATIN 80 MG TABLET PO SCH (20:22)
[2017-09-21] MEDS: AZITHROMYCIN 500 MG TABLET PO SCH (20:22)
[2017-09-21] MEDS: ENOXAPARIN 40 MG/0.4 ML SQ SCH (20:22)
[2017-09-22] MEDS: IBUPROFEN 200 MG TABLET PO PRN (01:01)
[2017-09-22 01:35] VITALS: BP 112/73
[2017-09-22] MEDS: OXYcodone IR 5MG TABLET PO PRN (04:55)
[2017-09-22] MEDS: METOPROLOL TARTRATE 50 MG TABLET PO SCH (04:55)
[2017-09-22 08:19] VITALS: BP 100/64
[2017-09-22] MEDS: SENNA/DOCUSATE TABLET PO SCH (09:00)
[2017-09-22] MEDS: LISINOPRIL 20 MG TABLET PO SCH (09:00)
[2017-09-22] MEDS: AMIODARONE 200 MG TABLET PO SCH (09:39)
[2017-09-22] MEDS: FAMOTIDINE 20 MG TABLET PO SCH (09:39)
[2017-09-22] MEDS: CEFDINIR 300 MG CAPSULE PO SCH (09:41)
[2017-09-22 09:45] VITALS: BP 104/71
== END 2017-09-22 12:52 | disposition home or self-care (01) | DRG 91 ==
LOC: SUATTDRO 19:52 → ED 20:33 → EDIP 21:11 → 3NE 22:25 → DCLOUNGE 09-22 12:39
PROVIDERS: ADMIT Family Medicine; ATTEND Family Medicine
DX: G92 Toxic encephalopathy (principal); J18.9 Pneumonia, unspecified organism; E87.1 Hypo-osmolality and hyponatremia; D68.69 Other thrombophilia; E78.5 Hyperlipidemia, unspecified; F41.1 Generalized anxiety disorder; I48.2 Chronic atrial fibrillation; I11.0 Hypertensive heart disease with heart failure; F32.9 Major depressive disorder, single episode, unspecified; E87.6 Hypokalemia; E16.2 Hypoglycemia, unspecified; Z83.3 Family history of diabetes mellitus; Z86.73 Personal history of transient ischemic attack (TIA), and cerebral infarction without residual deficits; Z90.710 Acquired absence of both cervix and uterus; Z91.19 Patient's noncompliance with other medical treatment and regimen; Z87.11 Personal history of peptic ulcer disease; Z79.899 Other long term (current) drug therapy; Z90.49 Acquired absence of other specified parts of digestive tract; T42.4X5A Adverse effect of benzodiazepines, initial encounter; Y92.89 Other specified places as the place of occurrence of the external cause
CPT/HCPCS: 36415; 71045; 80048; 80053; 81003; 82140; 82962; 83036; 83605; 83735; 84100; 84132; 85025; 87040; 93005; 96365; 96366; 96368; J0456; J0696; J1650; J3480; Q0162; J7050

== ENCOUNTER → 2017-11-08 | Outpatient (CLI) | payer MEDICARE ==
[~2017-11-08] MED LIST changes: +CEFD300C37 PO
== END | disposition home or self-care (01) ==
LOC: CFH 14:26
PROVIDERS: ATTEND Physician Assistant
DX: N63.10 Unspecified lump in the right breast, unspecified quadrant (principal); J18.9 Pneumonia, unspecified organism; E78.5 Hyperlipidemia, unspecified; I10 Essential (primary) hypertension; F32.9 Major depressive disorder, single episode, unspecified
CPT/HCPCS: 71046; 77066

== ENCOUNTER 2017-11-28 15:17 | Inpatient (IN) | payer MEDICARE ==
[~2017-11-28] VITALS: Ht 172.7 cm; Wt 104.0 kg
[2017-11-28 15:52] LABS: BASOPHILS # (AUTO) 0.05 x10^3/uL (0-0.1); BASOPHILS % (AUTO) 1 % (0-1); EOSINOPHILS # (AUTO) 0.09 x10^3/uL (0-0.4); EOSINOPHILS % (AUTO) 2 % (1-7); LYMPHOCYTES # (AUTO) 0.73 x10^3/uL (1-3.4); LYMPHOCYTES % (AUTO) 14 % (22-44); MD NO; MEAN CORPUSCULAR HEMOGLOBIN 31.4 pg (27.0-34.8); MEAN CORPUSCULAR HGB CONC 32.5 g/dL (32.4-35.8); MEAN CORPUSCULAR VOLUME 96.5 fL (80-100); MEAN PLATELET VOLUME 7.1 fL (7.4-10.4); MONOCYTES # (AUTO) 0.62 x10^3/uL (0.2-0.8); MONOCYTES % (AUTO) 12 % (2-9); NEUTROPHILS # (AUTO) 3.89 x10^3/uL (1.8-6.8); NEUTROPHILS % (AUTO) 72 % (42-75); PLATELET COUNT 190 x10^3/uL (130-400); RED BLOOD COUNT 2.82 x10^6/uL (3.82-5.3); RED CELL DISTRIBUTION WIDTH 21.3 % (9.6-15.2)
[2017-11-28] MEDS ORDERED: SODIUM CHLORIDE 0.9% 1,000ML IVBOLUS ONE (16:00)
[2017-11-28] MEDS ORDERED: SODIUM CHLORIDE FLUSH 10ML SYR IVF ONE (16:00)
[2017-11-28 16:02] LABS: ALBUMIN 3.5 g/dL (3.4-5.0); ANION GAP 13 mmol/L (5-15); CALCIUM 8.1 mg/dL (8.5-10.1); CHLORIDE 98 mmol/L (98-107)
[2017-11-28 16:17] LABS: ALANINE AMINOTRANSFERASE 61 U/L (12-78); ALKALINE PHOSPHATASE 81 U/L (45-117); BILIRUBIN,TOTAL 0.5 mg/dL (0.2-1.0); CREATININE 1.28 mg/dL (0.55-1.02); SALICYLATE LEVEL < 1.7 mg/dL (2.8-20.0); TOTAL PROTEIN 7.2 g/dL (6.4-8.2); TROPONIN I < 0.015 ng/mL (0.000-0.045)
[2017-11-28 16:22] LABS: ACETAMINOPHEN < 2 mcg/mL (10-30); INTERNATIONAL NORMALIZED RATIO 1.1 (0.93-1.1); PROTHROMBIN TIME 11.4 Seconds (9.6-11.5)
[2017-11-28] MEDS ORDERED: ENALAPRILAT 1.25 MG/ML, 2ML IVPush PRN (19:00)
[2017-11-28 19:40] VITALS: BP 174/99
[2017-11-28] MEDS ORDERED: CEFTRIAXONE 2,000 MG in DEXTROSE 5% 50 ML IV SCH (20:00)
[2017-11-28] MEDS ORDERED: ENOXAPARIN 40 MG/0.4 ML SQ SCH (20:00)
[2017-11-28] MEDS ORDERED: CEFTRIAXONE 2,000 MG in SODIUM CHLORIDE 0.9% 50 ML IV SCH (20:00)
[2017-11-28 20:20] VITALS: BP 174/99
[2017-11-28] MEDS: AZITHROMYCIN 500 MG TABLET PO SCH (20:44)
[2017-11-28] MEDS: ATORVASTATIN 80 MG TABLET PO SCH (20:44)
[2017-11-28] MEDS: METOPROLOL TARTRATE 50 MG TABLET PO SCH (20:44)
[2017-11-28] MEDS: PANTOPROZOLE 40MG TABLET PO SCH (20:44)
[2017-11-28] MEDS: AMIODARONE 200 MG TABLET PO SCH (20:45)
[2017-11-28 21:56] LABS: CULTURE INDICATED? YES; MICROSCOPIC INDICATED
[2017-11-28] MEDS: NS + 20MEQ KCL 1,000 ML IV SCH (22:23)
[2017-11-28] MEDS: ACETAMINOPHEN 325 MG TABLET PO PRN (22:23)
[2017-11-28] MEDS ORDERED: GABA300C10 PO (23:40)
[2017-11-29] MEDS: GABAPENTIN 300 MG CAPSULE PO SCH ×2 (00:35→20:45)
[2017-11-29 01:00] VITALS: BP 160/91
[2017-11-29] MEDS: ACETAMINOPHEN 325 MG TABLET PO PRN ×2 (03:23→08:57)
[2017-11-29 04:49] LABS: BASOPHILS # (AUTO) 0.04 x10^3/uL (0-0.1); BASOPHILS % (AUTO) 1 % (0-1); EOSINOPHILS # (AUTO) 0.06 x10^3/uL (0-0.4); EOSINOPHILS % (AUTO) 1 % (1-7); LYMPHOCYTES # (AUTO) 0.63 x10^3/uL (1-3.4); LYMPHOCYTES % (AUTO) 12 % (22-44); MD NO; MEAN CORPUSCULAR HGB CONC 33.2 g/dL (32.4-35.8); MEAN CORPUSCULAR VOLUME 96.3 fL (80-100); MEAN PLATELET VOLUME 7.4 fL (7.4-10.4); MONOCYTES # (AUTO) 0.55 x10^3/uL (0.2-0.8); MONOCYTES % (AUTO) 10 % (2-9); NEUTROPHILS # (AUTO) 4.11 x10^3/uL (1.8-6.8); NEUTROPHILS % (AUTO) 76 % (42-75); PLATELET COUNT 178 x10^3/uL (130-400); RED BLOOD COUNT 2.73 x10^6/uL (3.82-5.3); RED CELL DISTRIBUTION WIDTH 21.4 % (9.6-15.2)
[2017-11-29 04:55] LABS: ANION GAP 8 mmol/L (5-15); CALCIUM 7.9 mg/dL (8.5-10.1); CHLORIDE 101 mmol/L (98-107); CREATININE 1.18 mg/dL (0.55-1.02)
[2017-11-29] MEDS: METOPROLOL TARTRATE 50 MG TABLET PO SCH (05:50)
[2017-11-29 06:50] VITALS: BP 155/87
[2017-11-29] MEDS: PANTOPROZOLE 40MG TABLET PO SCH ×2 (08:43→17:43)
[2017-11-29] MEDS: AZITHROMYCIN 500 MG TABLET PO SCH (08:43)
[2017-11-29] MEDS: AMIODARONE 200 MG TABLET PO SCH (08:44)
[2017-11-29] MEDS: NS + 20MEQ KCL 1,000 ML IV SCH ×2 (08:44→20:42)
[2017-11-29] MEDS: MULTIVITAMIN 1 TABLET PO SCH (08:44)
[2017-11-29] MEDS ORDERED: LEVOTHYROXINE 100 MCG INJ IVPush SCH (09:30)
[2017-11-29] MEDS ORDERED: LIOTHYRONINE 10 MCG/ML IVPush ONE (12:00)
[2017-11-29] MEDS ORDERED: IBUPROFEN 200 MG TABLET PO PRN ×2 (12:00→18:00)
[2017-11-29] MEDS: ONDANSETRON ODT 4 MG PO PRN ×2 (12:17→17:43)
[2017-11-29] MEDS: LEVOTHYROXINE 100 MCG INJ IVPush SCH (12:20)
[2017-11-29 12:53] VITALS: BP 156/88
[2017-11-29] MEDS: CARVEDILOL 6.25 MG TABLET PO SCH (17:43)
[2017-11-29 20:32] VITALS: BP 148/86
[2017-11-29] MEDS: LIOTHYRONINE 10 MCG/ML IVPush SCH (20:44)
[2017-11-29] MEDS: ATORVASTATIN 80 MG TABLET PO SCH (20:45)
[2017-11-30 01:29] VITALS: BP 136/81
[2017-11-30] MEDS: LIOTHYRONINE 10 MCG/ML IVPush SCH (04:25)
[2017-11-30 05:34] LABS: MEAN CORPUSCULAR HEMOGLOBIN 32.2 pg (27.0-34.8); MEAN CORPUSCULAR HGB CONC 32.8 g/dL (32.4-35.8); MEAN CORPUSCULAR VOLUME 98.2 fL (80-100); RED BLOOD COUNT 2.82 x10^6/uL (3.82-5.3)
[2017-11-30 05:41] LABS: ALBUMIN 3.3 g/dL (3.4-5.0); ANION GAP 8 mmol/L (5-15); CALCIUM 7.7 mg/dL (8.5-10.1); CHLORIDE 102 mmol/L (98-107)
[2017-11-30 05:54] LABS: ALANINE AMINOTRANSFERASE 51 U/L (12-78); ALKALINE PHOSPHATASE 72 U/L (45-117); BILIRUBIN,TOTAL 0.4 mg/dL (0.2-1.0); CREATININE 1.27 mg/dL (0.55-1.02); FREE T4 (FREE THYROXINE) 0.57 ng/dL (0.76-1.46); TOTAL PROTEIN 6.8 g/dL (6.4-8.2)
[2017-11-30 06:06] LABS: BASOPHILS # (AUTO) 0.03 x10^3/uL (0-0.1); BASOPHILS % (AUTO) 1 % (0-1); EOSINOPHILS # (AUTO) 0.06 x10^3/uL (0-0.4); EOSINOPHILS % (AUTO) 1 % (1-7); LYMPHOCYTES # (AUTO) 0.83 x10^3/uL (1-3.4); LYMPHOCYTES % (AUTO) 16 % (22-44); MD SCAN; MEAN PLATELET VOLUME 7.8 fL (7.4-10.4); MONOCYTES # (AUTO) 0.54 x10^3/uL (0.2-0.8); MONOCYTES % (AUTO) 11 % (2-9); NEUTROPHILS # (AUTO) 3.65 x10^3/uL (1.8-6.8); NEUTROPHILS % (AUTO) 72 % (42-75); PLATELET COUNT 193 x10^3/uL (130-400)
[2017-11-30 06:45] VITALS: BP 135/83
[2017-11-30] MEDS: CARVEDILOL 6.25 MG TABLET PO SCH ×2 (06:49→17:13)
[2017-11-30] MEDS ORDERED: ERGOCALCIFEROL 50,000 UNIT CAPSULE PO SCH (09:00)
[2017-11-30] MEDS ORDERED: LEVOTHYROXINE 100 MCG INJ IVPush SCH (09:00)
[2017-11-30] MEDS: LIOTHYRONINE 5 MCG TABLET PO SCH (10:02)
[2017-11-30] MEDS: LISINOPRIL 10 MG TABLET PO SCH (10:02)
[2017-11-30] MEDS: MULTIVITAMIN 1 TABLET PO SCH (10:02)
[2017-11-30] MEDS: PANTOPROZOLE 40MG TABLET PO SCH ×2 (10:04→17:14)
[2017-11-30] MEDS: LEVOTHYROXINE 100 MCG INJ IVPush SCH (10:35)
[2017-11-30] MEDS: HEPARIN 5,000 UNITS/ML, 1ML SQ SCH ×2 (10:35→17:14)
[2017-11-30 12:18] VITALS: BP 117/69
[2017-11-30 19:12] VITALS: BP 134/84
[2017-11-30] MEDS: GABAPENTIN 300 MG CAPSULE PO SCH (21:22)
[2017-11-30] MEDS: ATORVASTATIN 80 MG TABLET PO SCH (21:22)
[2017-11-30] MEDS: DIPHENHYDRAMINE 25 MG CAPSULE PO PRN (21:24)
[2017-12-01 01:07] VITALS: BP 106/68
[2017-12-01 05:19] VITALS: BP 145/84
[2017-12-01] MEDS: CARVEDILOL 6.25 MG TABLET PO SCH (05:22)
[2017-12-01] MEDS: HEPARIN 5,000 UNITS/ML, 1ML SQ SCH ×3 (05:22→17:37)
[2017-12-01 06:09] LABS: FREE T4 (FREE THYROXINE) 0.73 ng/dL (0.76-1.46); THYROID STIMULATING HORMONE 62.6 mIU/L (0.358-3.740)
[2017-12-01 06:59] VITALS: BP 125/74
[2017-12-01 08:17] LABS: ALBUMIN 3.3 g/dL (3.4-5.0); ANION GAP 10 mmol/L (5-15); CALCIUM 7.9 mg/dL (8.5-10.1); CHLORIDE 102 mmol/L (98-107); CREATININE 1.47 mg/dL (0.55-1.02)
[2017-12-01] MEDS: PANTOPROZOLE 40MG TABLET PO SCH ×2 (08:24→17:37)
[2017-12-01] MEDS: ACETAMINOPHEN 325 MG TABLET PO PRN ×4 (08:24→21:53)
[2017-12-01] MEDS: LIOTHYRONINE 5 MCG TABLET PO SCH (08:24)
[2017-12-01] MEDS: MULTIVITAMIN 1 TABLET PO SCH (08:25)
[2017-12-01] MEDS: LISINOPRIL 10 MG TABLET PO SCH (08:25)
[2017-12-01] MEDS: LEVOTHYROXINE 100 MCG INJ IVPush SCH (08:25)
[2017-12-01] MEDS: SODIUM CHLORIDE 0.9% 1,000 ML IV SCH ×2 (10:52→17:24)
[2017-12-01] MEDS: ONDANSETRON ODT 4 MG PO PRN ×2 (12:12→17:37)
[2017-12-01 12:47] VITALS: BP 122/79
[2017-12-01 16:03] LABS: % IRON SATURATION 4 % (20-55); IRON LEVEL 18 mcg/dL (50-170); TOTAL IRON BINDING CAPACITY 441 mcg/dL (250-450)
[2017-12-01 17:18] LABS: FOLATE LEVEL > 20.0 ng/mL (3.1-17.5)
[2017-12-01] MEDS: CARVEDILOL 3.125 MG TABLET PO SCH (17:37)
[2017-12-01 18:56] VITALS: BP 154/83
[2017-12-01] MEDS: ATORVASTATIN 80 MG TABLET PO SCH (21:53)
[2017-12-01] MEDS: GABAPENTIN 300 MG CAPSULE PO SCH (21:53)
[2017-12-01] MEDS: DIPHENHYDRAMINE 25 MG CAPSULE PO PRN (21:59)
[2017-12-02] MEDS: HEPARIN 5,000 UNITS/ML, 1ML SQ SCH ×3 (01:41→18:13)
[2017-12-02] MEDS: SODIUM CHLORIDE 0.9% 1,000 ML IV SCH ×3 (02:30→18:30)
[2017-12-02 03:14] VITALS: BP 111/70
[2017-12-02 04:43] LABS: ALBUMIN 3.1 g/dL (3.4-5.0); ANION GAP 7 mmol/L (5-15); CALCIUM 8.3 mg/dL (8.5-10.1); CHLORIDE 102 mmol/L (98-107); CREATININE 1.27 mg/dL (0.55-1.02)
[2017-12-02 04:56] LABS: FREE T4 (FREE THYROXINE) 0.84 ng/dL (0.76-1.46)
[2017-12-02] MEDS: CARVEDILOL 3.125 MG TABLET PO SCH ×2 (05:27→18:14)
[2017-12-02] MEDS ORDERED: LEVOTHYROXINE 100 MCG TABLET PO SCH (06:00)
[2017-12-02 07:13] VITALS: BP 116/77
[2017-12-02] MEDS: PANTOPROZOLE 40MG TABLET PO SCH ×2 (08:11→18:14)
[2017-12-02] MEDS: LIOTHYRONINE 5 MCG TABLET PO SCH ×2 (08:11→20:01)
[2017-12-02] MEDS: MULTIVITAMIN 1 TABLET PO SCH (08:11)
[2017-12-02] MEDS: IRON SUCROSE COMPLEX 100MG/5ML IV SCH (08:12)
[2017-12-02] MEDS ORDERED: LEVOTHYROXINE 100 MCG INJ IVPush SCH (09:00)
[2017-12-02 12:42] VITALS: BP 119/71
[2017-12-02] MEDS: ONDANSETRON ODT 4 MG PO PRN (15:54)
[2017-12-02] MEDS: ATORVASTATIN 80 MG TABLET PO SCH (20:01)
[2017-12-02] MEDS: GABAPENTIN 300 MG CAPSULE PO SCH (20:02)
[2017-12-02] MEDS: DIPHENHYDRAMINE 25 MG CAPSULE PO PRN (20:04)
[2017-12-02] MEDS: ACETAMINOPHEN 325 MG TABLET PO PRN (20:22)
[2017-12-02 20:57] VITALS: BP 136/84
[2017-12-03 01:11] VITALS: BP 101/67
[2017-12-03] MEDS: HEPARIN 5,000 UNITS/ML, 1ML SQ SCH ×3 (01:12→16:54)
[2017-12-03] MEDS: CARVEDILOL 3.125 MG TABLET PO SCH (05:49)
[2017-12-03 06:06] LABS: ALBUMIN 3.2 g/dL (3.4-5.0); ANION GAP 7 mmol/L (5-15); CALCIUM 8.5 mg/dL (8.5-10.1); CHLORIDE 100 mmol/L (98-107); CREATININE 1.25 mg/dL (0.55-1.02)
[2017-12-03 06:30] LABS: FREE T4 (FREE THYROXINE) 0.96 ng/dL (0.76-1.46)
[2017-12-03 08:19] VITALS: BP 113/73
[2017-12-03] MEDS: IRON SUCROSE COMPLEX 100MG/5ML IV SCH (08:57)
[2017-12-03] MEDS: PANTOPROZOLE 40MG TABLET PO SCH ×2 (08:57→16:53)
[2017-12-03] MEDS: MULTIVITAMIN 1 TABLET PO SCH (08:57)
[2017-12-03] MEDS: LIOTHYRONINE 5 MCG TABLET PO SCH (09:02)
[2017-12-03] MEDS ORDERED: DIPHENHYDRAMINE 50 MG CAPSULE PO PRN (11:00)
[2017-12-03 19:54] VITALS: BP 107/64
[2017-12-03] MEDS: GABAPENTIN 300 MG CAPSULE PO SCH (21:03)
[2017-12-03] MEDS: ATORVASTATIN 80 MG TABLET PO SCH (21:03)
[2017-12-04 00:38] VITALS: BP 122/79
[2017-12-04] MEDS: HEPARIN 5,000 UNITS/ML, 1ML SQ SCH ×3 (00:51→16:45)
[2017-12-04] MEDS: ACETAMINOPHEN 325 MG TABLET PO PRN (00:51)
[2017-12-04 05:19] LABS: MEAN CORPUSCULAR HEMOGLOBIN 31.7 pg (27.0-34.8); MEAN CORPUSCULAR HGB CONC 32.3 g/dL (32.4-35.8); MEAN CORPUSCULAR VOLUME 98.2 fL (80-100); MEAN PLATELET VOLUME 7.6 fL (7.4-10.4); PLATELET COUNT 217 x10^3/uL (130-400); RED BLOOD COUNT 2.68 x10^6/uL (3.82-5.3); RED CELL DISTRIBUTION WIDTH 22.3 % (9.6-15.2)
[2017-12-04 05:27] LABS: CHLORIDE 100 mmol/L (98-107)
[2017-12-04 05:51] LABS: ANION GAP 9 mmol/L (5-15); CALCIUM 8.9 mg/dL (8.5-10.1); CREATININE 1.22 mg/dL (0.55-1.02); FREE T4 (FREE THYROXINE) 0.93 ng/dL (0.76-1.46)
[2017-12-04 05:53] LABS: BASOPHILS # (AUTO) 0.03 x10^3/uL (0-0.1); BASOPHILS % (AUTO) 0 % (0-1); EOSINOPHILS # (AUTO) 0.27 x10^3/uL (0-0.4); EOSINOPHILS % (AUTO) 3 % (1-7); LYMPHOCYTES # (AUTO) 0.71 x10^3/uL (1-3.4); LYMPHOCYTES % (AUTO) 9 % (22-44); MD SCAN; MONOCYTES # (AUTO) 0.82 x10^3/uL (0.2-0.8); MONOCYTES % (AUTO) 10 % (2-9); NEUTROPHILS # (AUTO) 6.29 x10^3/uL (1.8-6.8); NEUTROPHILS % (AUTO) 78 % (42-75)
[2017-12-04] MEDS: LEVOTHYROXINE 125 MCG TABLET PO SCH (06:26)
[2017-12-04 07:25] VITALS: BP 121/78
[2017-12-04] MEDS: PANTOPROZOLE 40MG TABLET PO SCH ×2 (08:17→16:45)
[2017-12-04] MEDS: MULTIVITAMIN 1 TABLET PO SCH (08:17)
[2017-12-04] MEDS: LIOTHYRONINE 5 MCG TABLET PO SCH (08:18)
[2017-12-04] MEDS: IRON SUCROSE COMPLEX 100MG/5ML IV SCH (08:20)
[2017-12-04 12:15] VITALS: BP 120/82
[2017-12-04 18:43] VITALS: BP 137/83
[2017-12-04] MEDS: GABAPENTIN 300 MG CAPSULE PO SCH (20:41)
[2017-12-04] MEDS: ATORVASTATIN 80 MG TABLET PO SCH (20:41)
[2017-12-05 00:59] VITALS: BP 98/65
[2017-12-05] MEDS: HEPARIN 5,000 UNITS/ML, 1ML SQ SCH ×3 (00:59→16:44)
[2017-12-05 01:02] VITALS: BP 113/73
[2017-12-05 05:36] LABS: MEAN CORPUSCULAR HEMOGLOBIN 31.9 pg (27.0-34.8); MEAN CORPUSCULAR HGB CONC 32.4 g/dL (32.4-35.8); MEAN CORPUSCULAR VOLUME 98.7 fL (80-100); MEAN PLATELET VOLUME 7.7 fL (7.4-10.4); PLATELET COUNT 221 x10^3/uL (130-400); RED BLOOD COUNT 2.62 x10^6/uL (3.82-5.3); RED CELL DISTRIBUTION WIDTH 23.1 % (9.6-15.2)
[2017-12-05] MEDS: LEVOTHYROXINE 125 MCG TABLET PO SCH (05:45)
[2017-12-05 05:53] LABS: FREE T4 (FREE THYROXINE) 0.92 ng/dL (0.76-1.46); THYROID STIMULATING HORMONE 51.8 mIU/L (0.358-3.740)
[2017-12-05 06:16] LABS: BASOPHILS # (AUTO) 0.05 x10^3/uL (0-0.1); BASOPHILS % (AUTO) 1 % (0-1); EOSINOPHILS # (AUTO) 0.24 x10^3/uL (0-0.4); EOSINOPHILS % (AUTO) 4 % (1-7); LYMPHOCYTES # (AUTO) 0.88 x10^3/uL (1-3.4); LYMPHOCYTES % (AUTO) 15 % (22-44); MONOCYTES # (AUTO) 0.68 x10^3/uL (0.2-0.8); MONOCYTES % (AUTO) 11 % (2-9); NEUTROPHILS # (AUTO) 4.14 x10^3/uL (1.8-6.8); NEUTROPHILS % (AUTO) 69 % (42-75)
[2017-12-05 06:17] LABS: MD SCAN
[2017-12-05 07:12] VITALS: BP 115/67
[2017-12-05] MEDS: MULTIVITAMIN 1 TABLET PO SCH (08:25)
[2017-12-05] MEDS: IRON SUCROSE COMPLEX 100MG/5ML IV SCH (08:25)
[2017-12-05] MEDS: LIOTHYRONINE 5 MCG TABLET PO SCH (08:25)
[2017-12-05] MEDS: PANTOPROZOLE 40MG TABLET PO SCH ×2 (08:33→16:44)
[2017-12-05] MEDS ORDERED: LEVO125T PO (13:12)
[2017-12-05] MEDS ORDERED: ERGO500017 PO (13:12)
[2017-12-05] MEDS ORDERED: GABA300C10 PO (13:12)
[2017-12-05] MEDS ORDERED: LIOT5TAB3 PO (13:12)
[2017-12-05] MEDS ORDERED: FERR-51 PO (13:12)
[2017-12-05 13:23] VITALS: BP 140/82
== END 2017-12-05 17:52 | disposition home health service (06) | DRG 682 ==
LOC: ED 17:52 → EDIP 19:06 → 3NE 19:28 → 5SO 11-29 11:25
PROVIDERS: ADMIT Hospitalist; ATTEND Hospitalist
DX: N17.9 Acute kidney failure, unspecified (principal); G93.41 Metabolic encephalopathy; E87.1 Hypo-osmolality and hyponatremia; E87.2 Acidosis; F10.129 Alcohol abuse with intoxication, unspecified; N25.81 Secondary hyperparathyroidism of renal origin; D50.9 Iron deficiency anemia, unspecified; E03.9 Hypothyroidism, unspecified; E78.5 Hyperlipidemia, unspecified; F41.1 Generalized anxiety disorder; I07.1 Rheumatic tricuspid insufficiency; I12.9 Hypertensive chronic kidney disease with stage 1 through stage 4 chronic kidney disease, or unspecified chronic kidney disease; N18.9 Chronic kidney disease, unspecified; I48.91 Unspecified atrial fibrillation; Y90.3 Blood alcohol level of 60-79 mg/100 ml; Z83.3 Family history of diabetes mellitus; Z86.73 Personal history of transient ischemic attack (TIA), and cerebral infarction without residual deficits; Z87.11 Personal history of peptic ulcer disease; Z90.710 Acquired absence of both cervix and uterus; Z88.7 Allergy status to serum and vaccine; Z88.8 Allergy status to other drugs, medicaments and biological substances; Z91.040 Latex allergy status
CPT/HCPCS: 36415; 70450; 71045; 76770; 80048; 80053; 80074; 80307; 80329; 81001; 82040; 82306; 82330; 82533; 82607; 82728; 82746; 83540; 83550; 83735; 83970; 84100; 84439; 84443; 84481; 84484; 85025; 85610; 85730; 87086; 93005; 93880; 96360; C8929; J0696; J1644; J1650; J1756; J3480; Q0162; 92523-GN; G0480; J7030; Q0163

== ENCOUNTER 2018-07-08 11:22 | Inpatient (IN) | payer MEDICARE ==
[~2018-07-08] VITALS: Ht 172.7 cm; Wt 95.7 kg
[~2018-07-08 11:22] MED LIST changes: +ACET325T14 PO; +ERGO500017 PO; +FERR-51 PO; +GABA300C10 PO; +GUAI600T31 PO; +LEVO125T PO; +LIOT5TAB3 PO; +SIMV5TAB14 PO; -SIMV5TAB5 PO
--- NOTE | 2018-07-08 12:12 | NUR ---
PT BIB [facility] FROM HOME FOR PERSISTENT N/V AND WEAKNESS FOR 1.5 WEEKS. PT STATES UNABLE TO EAT SINCE TUESDAY, SO NO BM X1 WK. 4 MG ZOFRAN GIVEN IN ROUTE, [facility] UNABLE TO GAIN IV ACCESS. CONNECTED TO ALL MONITORING, VSS. CALL LIGHT WITHIN REACH. MD ORDERS RECEIVED. PT HELPED UP TO BSC, UA COLLECTED AND SENT. REPORT GIVEN TO MARILOU ELI
--- NOTE | 2018-07-08 12:37 | NUR ---
Pt resting in bed. US IV access obtained. Pt states triped and broke her leg almost 2 months ago, walked on the fracture for 3 weeks before seeking care here. Admitted to hospital for several days before being dc'd home. Unable to follow up with ortho d/t feeling weak. Pt lives at home with and son. Nausea, vomiting, and anorexia x 1 week. No BM in one week. Mucus membranes dry, poor skin turgur.
[2018-07-08 12:47] LABS: BASOPHILS % (AUTO) 0 % (0-1); EOSINOPHILS % (AUTO) 0 % (1-7); LYMPHOCYTES % (AUTO) 8 % (22-44); MD NO; MEAN CORPUSCULAR HEMOGLOBIN 35.3 pg (27.0-34.8); MEAN CORPUSCULAR HGB CONC 32.8 g/dL (32.4-35.8); MEAN CORPUSCULAR VOLUME 107.6 fL (80-100); MEAN PLATELET VOLUME 8.5 fL (7.4-10.4); MONOCYTES # (AUTO) 0.27 x10^3/uL (0.2-0.8); MONOCYTES % (AUTO) 4 % (2-9); NEUTROPHILS # (AUTO) 7.06 x10^3/uL (1.8-6.8); NEUTROPHILS % (AUTO) 89 % (42-75); PLATELET COUNT 247 x10^3/uL (130-400); RED BLOOD COUNT 3.95 x10^6/uL (3.82-5.3)
[2018-07-08] MEDS ORDERED: ONDANSETRON 2MG/ML, 2ML ONE (12:58)
[2018-07-08] MEDS ORDERED: SODIUM CHLORIDE FLUSH 10ML SYR IVF ONE (13:00)
[2018-07-08] MEDS ORDERED: ONDANSETRON 2MG/ML, 2ML IVPush ONE (13:00)
[2018-07-08] MEDS ORDERED: SODIUM CHLORIDE 0.9% 1,000 ML IV ONE (13:00)
[2018-07-08 13:04] LABS: ALBUMIN 3.5 g/dL (3.4-5.0); CALCIUM 12.8 mg/dL (8.5-10.1); CHLORIDE 122 mmol/L (98-107)
[2018-07-08 13:07] LABS: ALANINE AMINOTRANSFERASE 100 U/L (12-78); ALKALINE PHOSPHATASE 105 U/L (45-117); BILIRUBIN,TOTAL 0.6 mg/dL (0.2-1.0); CREATININE 1.77 mg/dL (0.55-1.02)
[2018-07-08 13:17] LABS: ANION GAP 10 mmol/L (5-15)
[2018-07-08 13:43] LABS: ACETONE, SERUM Small (20mg/dL) mg/dL (Negative)
[2018-07-08] MEDS ORDERED: ONDANSETRON 2MG/ML, 2ML IVPush PRN (14:00)
[2018-07-08] MEDS ORDERED: POLYETHYLENE GLYCOL 17 GM PACKET PO PRN (14:00)
[2018-07-08] MEDS ORDERED: ONDANSETRON ODT 4 MG PO PRN (14:00)
[2018-07-08] MEDS ORDERED: BISACODYL 10 MG SUPP PR PRN (14:00)
[2018-07-08] MEDS ORDERED: PROMETHAZINE 25 MG/ML, 1ML IM PRN (14:00)
[2018-07-08] MEDS ORDERED: hydrALAzine 20 MG/ML, 1ML IVPush PRN (14:00)
[2018-07-08] MEDS ORDERED: POTASSIUM CHLORIDE 40 MEQ in SODIUM CHLORIDE 0.9% 500 ML IV ONE (14:00)
[2018-07-08] MEDS ORDERED: MORPHINE SULFATE 4 MG/ML, 1ML IVPush PRN (14:00)
[2018-07-08] MEDS ORDERED: OXYcodone IR 5MG TABLET PO PRN (14:00)
[2018-07-08 14:39] LABS: MICROSCOPIC INDICATED
[2018-07-08 14:40] LABS: FREE T4 (FREE THYROXINE) 1.51 ng/dL (0.76-1.46); THYROID STIMULATING HORMONE 0.634 mIU/L (0.358-3.740)
[2018-07-08 14:47] LABS: HEMOGLOBIN A1C 4.8 % (4.2-6.3)
[2018-07-08 14:48] LABS: CULTURE INDICATED? YES
[2018-07-08] MEDS ORDERED: HEPARIN 5,000 UNITS/ML, 1ML ONE (16:03)
[2018-07-08] MEDS: HEPARIN 5,000 UNITS/ML, 1ML SQ SCH (16:08)
[2018-07-08] MEDS ORDERED: POTASSIUM CHLORIDE 20 MEQ TAB.ER.PRT PO SCH (17:00)
[2018-07-08] MEDS: ERGOCALCIFEROL 50,000 UNIT CAPSULE PO SCH (18:16)
[2018-07-08 20:00] VITALS: BP 114/65
[2018-07-08] MEDS: LACTULOSE 10 GM/15 ML UDC PO SCH (20:14)
[2018-07-08] MEDS: SODIUM CHLORIDE 0.9% 1,000 ML IV SCH (20:14)
[2018-07-08] MEDS: FERROUS SULFATE 325 MG TABLET PO SCH (20:15)
[2018-07-08] MEDS: AMIODARONE 200 MG TABLET PO SCH (20:15)
[2018-07-08] MEDS: GABAPENTIN 300 MG CAPSULE PO SCH (20:15)
[2018-07-08] MEDS: ATORVASTATIN 80 MG TABLET PO SCH (20:15)
[2018-07-08] MEDS: PANTOPROZOLE 40MG TABLET PO SCH (20:15)
[2018-07-09] MEDS: HEPARIN 5,000 UNITS/ML, 1ML SQ SCH ×3 (01:53→17:31)
[2018-07-09 03:16] VITALS: BP 119/78
[2018-07-09] MEDS: SODIUM CHLORIDE 0.9% 1,000 ML IV SCH (04:32)
[2018-07-09 05:52] LABS: BASOPHILS # (AUTO) 0.03 x10^3/uL (0-0.1); BASOPHILS % (AUTO) 0 % (0-1); EOSINOPHILS # (AUTO) 0.01 x10^3/uL (0-0.4); EOSINOPHILS % (AUTO) 0 % (1-7); LYMPHOCYTES % (AUTO) 10 % (22-44); MD NO; MEAN CORPUSCULAR HEMOGLOBIN 35.6 pg (27.0-34.8); MEAN CORPUSCULAR HGB CONC 32.9 g/dL (32.4-35.8); MEAN CORPUSCULAR VOLUME 108.3 fL (80-100); MEAN PLATELET VOLUME 8.8 fL (7.4-10.4); MONOCYTES # (AUTO) 0.53 x10^3/uL (0.2-0.8); MONOCYTES % (AUTO) 7 % (2-9); NEUTROPHILS # (AUTO) 6.27 x10^3/uL (1.8-6.8); NEUTROPHILS % (AUTO) 82 % (42-75); PLATELET COUNT 207 x10^3/uL (130-400); RED BLOOD COUNT 3.48 x10^6/uL (3.82-5.3); RED CELL DISTRIBUTION WIDTH 16.6 % (9.6-15.2)
[2018-07-09] MEDS ORDERED: LEVOTHYROXINE 125 MCG TABLET PO SCH (06:00)
[2018-07-09 06:03] LABS: CHLORIDE 126 mmol/L (98-107)
[2018-07-09 06:12] LABS: ALANINE AMINOTRANSFERASE 78 U/L (12-78); ALBUMIN 3.1 g/dL (3.4-5.0); ALKALINE PHOSPHATASE 85 U/L (45-117); ANION GAP 9 mmol/L (5-15); BILIRUBIN,TOTAL 0.5 mg/dL (0.2-1.0); CALCIUM 11.2 mg/dL (8.5-10.1); CREATININE 1.53 mg/dL (0.55-1.02); TOTAL PROTEIN 6.9 g/dL (6.4-8.2)
[2018-07-09 06:54] VITALS: BP 154/83
[2018-07-09] MEDS ORDERED: POTASSIUM CHLORIDE 20 MEQ TAB.ER.PRT PO ONE ×3 (07:00→11:00)
[2018-07-09] MEDS: POTASSIUM CHLORIDE 20 MEQ in SODIUM CHLORIDE 0.45% 1,000 ML IV SCH ×2 (07:30→22:26)
[2018-07-09] MEDS ORDERED: POTASSIUM CHLORIDE 20 MEQ in SODIUM CHLORIDE 0.45% 1,000 ML IV SCH (07:30)
[2018-07-09] MEDS ORDERED: OXYcodone IR 5MG TABLET PO PRN (10:00)
[2018-07-09] MEDS: GABAPENTIN 300 MG CAPSULE PO SCH ×2 (10:51→22:25)
[2018-07-09] MEDS: AMIODARONE 200 MG TABLET PO SCH ×2 (10:51→22:25)
[2018-07-09] MEDS: MULTIVITAMIN 1 TABLET PO SCH (10:51)
[2018-07-09] MEDS: LIOTHYRONINE 5 MCG TABLET PO SCH (10:51)
[2018-07-09] MEDS: FERROUS SULFATE 325 MG TABLET PO SCH ×2 (10:51→22:25)
[2018-07-09] MEDS: PANTOPROZOLE 40MG TABLET PO SCH ×2 (10:51→22:25)
[2018-07-09] MEDS: LACTULOSE 10 GM/15 ML UDC PO SCH ×2 (10:52→22:26)
[2018-07-09 13:03] VITALS: BP 107/65
[2018-07-09] MEDS ORDERED: POTASSIUM CHLORIDE 20 MEQ TAB.ER.PRT ONE (17:28)
[2018-07-09 19:20] VITALS: BP 138/85
[2018-07-09 19:34] LABS: MICROSCOPIC AUTO
[2018-07-09 19:38] LABS: CULTURE INDICATED? YES
[2018-07-09] MEDS: ATORVASTATIN 80 MG TABLET PO SCH (22:25)
[2018-07-10 00:45] VITALS: BP 85/50
[2018-07-10 02:10] VITALS: BP 108/69
[2018-07-10] MEDS: LEVOTHYROXINE 100 MCG TABLET PO SCH (06:35)
[2018-07-10] MEDS: HEPARIN 5,000 UNITS/ML, 1ML SQ SCH ×3 (06:36→20:11)
[2018-07-10 07:50] VITALS: BP 112/72
[2018-07-10 08:00] LABS: ANION GAP 8 mmol/L (5-15); CALCIUM 10.8 mg/dL (8.5-10.1); CHLORIDE 120 mmol/L (98-107); CREATININE 1.51 mg/dL (0.55-1.02)
[2018-07-10] MEDS: GABAPENTIN 300 MG CAPSULE PO SCH ×2 (08:21→20:12)
[2018-07-10] MEDS: AMIODARONE 200 MG TABLET PO SCH ×2 (08:21→20:12)
[2018-07-10] MEDS: LIOTHYRONINE 5 MCG TABLET PO SCH (08:21)
[2018-07-10] MEDS: PANTOPROZOLE 40MG TABLET PO SCH ×2 (08:21→20:12)
[2018-07-10] MEDS: FERROUS SULFATE 325 MG TABLET PO SCH ×2 (08:21→20:12)
[2018-07-10] MEDS: MULTIVITAMIN 1 TABLET PO SCH (08:21)
[2018-07-10] MEDS: POTASSIUM CHLORIDE 20 MEQ in SODIUM CHLORIDE 0.45% 1,000 ML IV SCH ×2 (08:21→18:53)
[2018-07-10] MEDS: LACTULOSE 10 GM/15 ML UDC PO SCH ×2 (08:22→20:11)
[2018-07-10 08:38] LABS: BASOPHILS # (AUTO) 0.07 x10^3/uL (0-0.1); BASOPHILS % (AUTO) 1 % (0-1); EOSINOPHILS # (AUTO) 0.04 x10^3/uL (0-0.4); EOSINOPHILS % (AUTO) 1 % (1-7); LYMPHOCYTES # (AUTO) 1.05 x10^3/uL (1-3.4); LYMPHOCYTES % (AUTO) 18 % (22-44); MD SCAN; MEAN CORPUSCULAR HEMOGLOBIN 36.1 pg (27.0-34.8); MEAN CORPUSCULAR VOLUME 109.2 fL (80-100); MEAN PLATELET VOLUME 8.6 fL (7.4-10.4); MONOCYTES # (AUTO) 0.42 x10^3/uL (0.2-0.8); MONOCYTES % (AUTO) 7 % (2-9); NEUTROPHILS # (AUTO) 4.34 x10^3/uL (1.8-6.8); NEUTROPHILS % (AUTO) 73 % (42-75); PLATELET COUNT 162 x10^3/uL (130-400); RED BLOOD COUNT 3.42 x10^6/uL (3.82-5.3); RED CELL DISTRIBUTION WIDTH 16.2 % (9.6-15.2)
[2018-07-10 13:51] VITALS: BP 129/80
[2018-07-10 19:17] VITALS: BP 115/81
[2018-07-10] MEDS: ATORVASTATIN 80 MG TABLET PO SCH (20:11)
[2018-07-11 01:12] VITALS: BP 131/77
[2018-07-11] MEDS: HEPARIN 5,000 UNITS/ML, 1ML SQ SCH ×3 (04:33→22:29)
[2018-07-11] MEDS: LEVOTHYROXINE 100 MCG TABLET PO SCH (04:34)
[2018-07-11] MEDS: POTASSIUM CHLORIDE 20 MEQ in SODIUM CHLORIDE 0.45% 1,000 ML IV SCH ×2 (04:45→16:48)
[2018-07-11 07:55] VITALS: BP 108/64
[2018-07-11] MEDS: GABAPENTIN 300 MG CAPSULE PO SCH ×2 (08:45→22:29)
[2018-07-11] MEDS: LIOTHYRONINE 5 MCG TABLET PO SCH (08:45)
[2018-07-11] MEDS: MULTIVITAMIN 1 TABLET PO SCH (08:46)
[2018-07-11] MEDS: LACTULOSE 10 GM/15 ML UDC PO SCH ×2 (08:46→21:00)
[2018-07-11] MEDS: PANTOPROZOLE 40MG TABLET PO SCH ×2 (08:46→22:28)
[2018-07-11] MEDS: FERROUS SULFATE 325 MG TABLET PO SCH ×2 (08:46→22:28)
[2018-07-11] MEDS: AMIODARONE 200 MG TABLET PO SCH ×2 (08:46→22:31)
[2018-07-11] MEDS ORDERED: TAMSULOSIN 0.4 MG CAP.ER.24H ONE (08:58)
[2018-07-11] MEDS ORDERED: TAMSULOSIN 0.4 MG CAP.ER.24H PO ONE (09:00)
[2018-07-11] MEDS ORDERED: FOLIC ACID 1 MG TABLET ONE (09:18)
[2018-07-11] MEDS ORDERED: THIAMINE 100MG TABLET ONE (09:19)
[2018-07-11] MEDS: FOLIC ACID 1 MG TABLET PO SCH (09:20)
[2018-07-11] MEDS: THIAMINE 100MG TABLET PO SCH (09:20)
[2018-07-11 13:24] VITALS: BP 102/67
[2018-07-11 15:30] LABS: CLOSTRIDIUM DIFFICILE ANTIGEN NEGATIVE; CLOSTRIDIUM DIFFICILE TOXIN NEGATIVE (Negative)
[2018-07-11 19:05] VITALS: BP 127/82
[2018-07-11] MEDS: ATORVASTATIN 80 MG TABLET PO SCH (22:28)
[2018-07-12] VITALS (8 sets, daily range): BP systolic 87–104; BP diastolic 52–64
[2018-07-12] MEDS: POTASSIUM CHLORIDE 20 MEQ in SODIUM CHLORIDE 0.45% 1,000 ML IV SCH (02:37)
[2018-07-12] MEDS: LEVOTHYROXINE 100 MCG TABLET PO SCH (05:38)
[2018-07-12] MEDS: HEPARIN 5,000 UNITS/ML, 1ML SQ SCH ×3 (05:38→22:13)
[2018-07-12] MEDS: LACTULOSE 10 GM/15 ML UDC PO SCH (09:00)
[2018-07-12] MEDS: GABAPENTIN 300 MG CAPSULE PO SCH ×2 (09:03→21:03)
[2018-07-12] MEDS: LIOTHYRONINE 5 MCG TABLET PO SCH (09:03)
[2018-07-12] MEDS: MULTIVITAMIN 1 TABLET PO SCH (09:03)
[2018-07-12] MEDS: THIAMINE 100MG TABLET PO SCH (09:03)
[2018-07-12] MEDS: FOLIC ACID 1 MG TABLET PO SCH (09:03)
[2018-07-12] MEDS: AMIODARONE 200 MG TABLET PO SCH (09:03)
[2018-07-12] MEDS: FERROUS SULFATE 325 MG TABLET PO SCH ×2 (09:03→21:03)
[2018-07-12] MEDS: PANTOPROZOLE 40MG TABLET PO SCH (09:03)
[2018-07-12 12:25] LABS: ANION GAP 9 mmol/L (5-15); CALCIUM 10.2 mg/dL (8.5-10.1); CHLORIDE 118 mmol/L (98-107); CREATININE 1.16 mg/dL (0.55-1.02)
[2018-07-12] MEDS ORDERED: SODIUM BICARBONATE 8.4% 150 MEQ in DEXTROSE 5% 1,000 ML IV SCH (13:00)
[2018-07-12 13:15] LABS: O2 FLOW ROOM AIR L/min
[2018-07-12] MEDS ORDERED: LORazepam 0.5MG TABLET PO PRN (14:00)
[2018-07-12 14:53] LABS: MICROSCOPIC AUTO
[2018-07-12] MEDS ORDERED: OMNIPAQUE 350 MG/ML, 100ML BOTTLE ONE (14:53)
[2018-07-12 14:58] LABS: CULTURE INDICATED? YES
[2018-07-12] MEDS: CEFTRIAXONE PMX 1GM/50ML 50 ML IV SCH (15:48)
[2018-07-12 17:27] LABS: ANION GAP 8 mmol/L (5-15); CALCIUM 10.4 mg/dL (8.5-10.1); CHLORIDE 116 mmol/L (98-107); CREATININE 1.25 mg/dL (0.55-1.02)
[2018-07-12] MEDS ORDERED: FUROSEMIDE 20 MG/2 ML IV ONE (18:30)
[2018-07-12] MEDS ORDERED: ALBUMIN HUMAN 25% 100 ML IV ONE (19:00)
[2018-07-12] MEDS: ATORVASTATIN 80 MG TABLET PO SCH (21:02)
[2018-07-13 01:15] VITALS: BP 92/59
[2018-07-13] MEDS: SODIUM BICARBONATE 8.4% 150 MEQ in DEXTROSE 5% 1,000 ML IV SCH ×3 (01:48→21:30)
[2018-07-13] MEDS: HEPARIN 5,000 UNITS/ML, 1ML SQ SCH ×3 (05:09→23:23)
[2018-07-13] MEDS: LEVOTHYROXINE 100 MCG TABLET PO SCH (05:09)
[2018-07-13 06:10] LABS: ALBUMIN 2.6 g/dL (3.4-5.0); ANION GAP 8 mmol/L (5-15); CALCIUM 10.3 mg/dL (8.5-10.1); CHLORIDE 114 mmol/L (98-107); CREATININE 1.43 mg/dL (0.55-1.02)
[2018-07-13 07:03] VITALS: BP 96/57
[2018-07-13 07:14] VITALS: BP 98/58
[2018-07-13] MEDS ORDERED: POTASSIUM CHLORIDE 20 MEQ TAB.ER.PRT PO ONE ×3 (08:30→15:00)
[2018-07-13] MEDS ORDERED: AMIODARONE 200 MG TABLET PO SCH (09:00)
[2018-07-13] MEDS: LIOTHYRONINE 5 MCG TABLET PO SCH (09:26)
[2018-07-13] MEDS: FOLIC ACID 1 MG TABLET PO SCH (09:26)
[2018-07-13] MEDS: FERROUS SULFATE 325 MG TABLET PO SCH ×2 (09:26→20:59)
[2018-07-13] MEDS: GABAPENTIN 300 MG CAPSULE PO SCH ×2 (09:26→20:59)
[2018-07-13] MEDS: THIAMINE 100MG TABLET PO SCH (09:26)
[2018-07-13] MEDS: MULTIVITAMIN 1 TABLET PO SCH (09:26)
[2018-07-13] MEDS: AMIODARONE 200 MG TABLET PO SCH (09:36)
[2018-07-13 12:56] VITALS: BP 100/62
[2018-07-13] MEDS ORDERED: SODIUM BICARBONATE 8.4% 150 MEQ in DEXTROSE 5% 1,000 ML IV SCH (14:00)
[2018-07-13 14:35] LABS: ANION GAP 8 mmol/L (5-15); CALCIUM 10.2 mg/dL (8.5-10.1); CHLORIDE 111 mmol/L (98-107); CREATININE 1.31 mg/dL (0.55-1.02)
[2018-07-13] MEDS: CEFTRIAXONE PMX 1GM/50ML 50 ML IV SCH (14:55)
[2018-07-13] MEDS ORDERED: POTASSIUM CHLORIDE 40 MEQ in SODIUM CHLORIDE 0.9% 500 ML IV ONE (15:00)
[2018-07-13 15:17] LABS: POTASSIUM,URINE RANDOM 8 mmol/L; SODIUM,URINE RANDOM 17 mmol/L
[2018-07-13 19:20] VITALS: BP 93/55
[2018-07-13] MEDS: ATORVASTATIN 80 MG TABLET PO SCH (20:59)
[2018-07-13 21:42] LABS: ALBUMIN 2.8 g/dL (3.4-5.0); ANION GAP 7 mmol/L (5-15); CALCIUM 10.1 mg/dL (8.5-10.1); CHLORIDE 111 mmol/L (98-107); CREATININE 1.33 mg/dL (0.55-1.02)
[2018-07-13 23:25] VITALS: BP 114/69
[2018-07-14 01:03] VITALS: BP 100/62
[2018-07-14] MEDS: LEVOTHYROXINE 100 MCG TABLET PO SCH (05:18)
[2018-07-14 06:03] LABS: ALBUMIN 2.4 g/dL (3.4-5.0); ANION GAP 7 mmol/L (5-15); CALCIUM 9.9 mg/dL (8.5-10.1); CHLORIDE 113 mmol/L (98-107); CREATININE 1.23 mg/dL (0.55-1.02)
[2018-07-14 06:23] LABS: MEAN CORPUSCULAR HEMOGLOBIN 36.7 pg (27.0-34.8); MEAN CORPUSCULAR HGB CONC 33.9 g/dL (32.4-35.8); MEAN CORPUSCULAR VOLUME 108.1 fL (80-100); MEAN PLATELET VOLUME 9.1 fL (7.4-10.4); PLATELET COUNT 128 x10^3/uL (130-400); RED BLOOD COUNT 2.84 x10^6/uL (3.82-5.3); RED CELL DISTRIBUTION WIDTH 15.4 % (9.6-15.2)
[2018-07-14 07:16] VITALS: BP 103/65
[2018-07-14 08:04] LABS: BASOPHILS # (AUTO) 0.02 x10^3/uL (0-0.1); BASOPHILS % (AUTO) 0 % (0-1); EOSINOPHILS # (AUTO) 0.17 x10^3/uL (0-0.4); EOSINOPHILS % (AUTO) 3 % (1-7); LYMPHOCYTES # (AUTO) 0.78 x10^3/uL (1-3.4); LYMPHOCYTES % (AUTO) 14 % (22-44); MD MORPH REVIEW ONLY; MONOCYTES # (AUTO) 0.49 x10^3/uL (0.2-0.8); MONOCYTES % (AUTO) 9 % (2-9); NEUTROPHILS # (AUTO) 4.07 x10^3/uL (1.8-6.8); NEUTROPHILS % (AUTO) 74 % (42-75)
[2018-07-14 08:06] LABS: <PLATELET ESTIMATE> DECREASED; ANISOCYTOSIS 1+
[2018-07-14 08:07] LABS: <PLT MORPHOLOGY> NORMAL PLT MORPH
[2018-07-14] MEDS: FOLIC ACID 1 MG TABLET PO SCH (09:00)
[2018-07-14] MEDS: SODIUM BICARBONATE 8.4% 150 MEQ in DEXTROSE 5% 1,000 ML IV SCH ×3 (09:14→22:36)
[2018-07-14] MEDS: FERROUS SULFATE 325 MG TABLET PO SCH ×2 (09:14→21:33)
[2018-07-14] MEDS: HEPARIN 5,000 UNITS/ML, 1ML SQ SCH ×3 (09:15→22:55)
[2018-07-14] MEDS: AMIODARONE 200 MG TABLET PO SCH (09:15)
[2018-07-14] MEDS: THIAMINE 100MG TABLET PO SCH (09:15)
[2018-07-14] MEDS: LIOTHYRONINE 5 MCG TABLET PO SCH (09:15)
[2018-07-14] MEDS: NEUTRA PHOS K 250 MG TABLET PO SCH ×4 (09:15→21:33)
[2018-07-14] MEDS: MULTIVITAMIN 1 TABLET PO SCH (09:16)
[2018-07-14] MEDS: GABAPENTIN 300 MG CAPSULE PO SCH ×2 (09:16→21:33)
[2018-07-14 13:19] VITALS: BP 124/79
[2018-07-14] MEDS: CEFTRIAXONE PMX 1GM/50ML 50 ML IV SCH (15:25)
[2018-07-14 19:31] VITALS: BP 135/77
[2018-07-14] MEDS: ATORVASTATIN 80 MG TABLET PO SCH (21:33)
[2018-07-15 02:30] VITALS: BP 121/71
[2018-07-15] MEDS: LEVOTHYROXINE 100 MCG TABLET PO SCH (05:56)
[2018-07-15] MEDS: SODIUM BICARBONATE 8.4% 150 MEQ in DEXTROSE 5% 1,000 ML IV SCH (05:57)
[2018-07-15 07:08] VITALS: BP 119/68
[2018-07-15] MEDS: FERROUS SULFATE 325 MG TABLET PO SCH ×2 (08:35→20:37)
[2018-07-15] MEDS: NEUTRA PHOS K 250 MG TABLET PO SCH ×2 (08:35→15:41)
[2018-07-15] MEDS: MULTIVITAMIN 1 TABLET PO SCH (08:35)
[2018-07-15] MEDS: GABAPENTIN 300 MG CAPSULE PO SCH ×2 (08:35→20:36)
[2018-07-15] MEDS: THIAMINE 100MG TABLET PO SCH (08:35)
[2018-07-15] MEDS: FOLIC ACID 1 MG TABLET PO SCH (08:35)
[2018-07-15] MEDS: HEPARIN 5,000 UNITS/ML, 1ML SQ SCH ×2 (08:36→15:40)
[2018-07-15] MEDS: LIOTHYRONINE 5 MCG TABLET PO SCH (08:36)
[2018-07-15] MEDS: AMIODARONE 200 MG TABLET PO SCH (08:36)
[2018-07-15 09:43] LABS: BASOPHILS # (AUTO) 0.01 x10^3/uL (0-0.1); BASOPHILS % (AUTO) 0 % (0-1); EOSINOPHILS # (AUTO) 0.16 x10^3/uL (0-0.4); EOSINOPHILS % (AUTO) 3 % (1-7); LYMPHOCYTES % (AUTO) 16 % (22-44); MD NO; MEAN CORPUSCULAR HEMOGLOBIN 35.3 pg (27.0-34.8); MEAN CORPUSCULAR HGB CONC 33.4 g/dL (32.4-35.8); MEAN CORPUSCULAR VOLUME 105.6 fL (80-100); MEAN PLATELET VOLUME 8.8 fL (7.4-10.4); MONOCYTES # (AUTO) 0.51 x10^3/uL (0.2-0.8); MONOCYTES % (AUTO) 9 % (2-9); NEUTROPHILS # (AUTO) 4.16 x10^3/uL (1.8-6.8); NEUTROPHILS % (AUTO) 73 % (42-75); PLATELET COUNT 173 x10^3/uL (130-400); RED BLOOD COUNT 3.05 x10^6/uL (3.82-5.3); RED CELL DISTRIBUTION WIDTH 15.9 % (9.6-15.2)
[2018-07-15 09:58] LABS: ALBUMIN 2.4 g/dL (3.4-5.0); CALCIUM 9.2 mg/dL (8.5-10.1); CHLORIDE 101 mmol/L (98-107)
[2018-07-15 09:59] LABS: CREATININE 1.11 mg/dL (0.55-1.02)
[2018-07-15 10:26] LABS: ANION GAP 7 mmol/L (5-15)
[2018-07-15 11:26] LABS: FIO2 ROOM AIR %
[2018-07-15] MEDS ORDERED: POTASSIUM CHLORIDE 40 MEQ in SODIUM CHLORIDE 0.9% 500 ML IV ONE ×2 (12:00→17:00)
[2018-07-15] MEDS ORDERED: POTASSIUM CHLORIDE 20 MEQ TAB.ER.PRT PO ONE ×3 (12:00→17:00)
[2018-07-15 12:21] LABS: CHLORIDE,URINE RANDOM 55 mmol/L; POTASSIUM,URINE RANDOM 16 mmol/L; SODIUM,URINE RANDOM 53 mmol/L
[2018-07-15] MEDS: CEFDINIR 300 MG CAPSULE PO SCH ×2 (12:26→20:36)
[2018-07-15 12:57] LABS: ANION GAP 7 mmol/L (5-15); CALCIUM 8.7 mg/dL (8.5-10.1); CHLORIDE 100 mmol/L (98-107); CREATININE 0.96 mg/dL (0.55-1.02)
[2018-07-15 15:09] VITALS: BP 121/75
[2018-07-15] MEDS: ERGOCALCIFEROL 50,000 UNIT CAPSULE PO SCH (15:47)
[2018-07-15 16:45] LABS: ANION GAP 8 mmol/L (5-15); CALCIUM 8.4 mg/dL (8.5-10.1); CHLORIDE 102 mmol/L (98-107); CREATININE 1.07 mg/dL (0.55-1.02)
[2018-07-15 18:35] VITALS: BP 143/84
[2018-07-15] MEDS: ATORVASTATIN 80 MG TABLET PO SCH (20:37)
[2018-07-15 23:56] LABS: ANION GAP 4 mmol/L (5-15); CALCIUM 8.5 mg/dL (8.5-10.1); CHLORIDE 105 mmol/L (98-107); CREATININE 1.02 mg/dL (0.55-1.02)
[2018-07-16] MEDS: HEPARIN 5,000 UNITS/ML, 1ML SQ SCH ×4 (00:12→22:13)
[2018-07-16 00:24] VITALS: BP 104/66
[2018-07-16] MEDS: LEVOTHYROXINE 100 MCG TABLET PO SCH (05:40)
[2018-07-16 06:59] LABS: ALANINE AMINOTRANSFERASE 36 U/L (12-78); ALBUMIN 1.9 g/dL (3.4-5.0); ANION GAP 5 mmol/L (5-15); BASOPHILS # (AUTO) 0.02 x10^3/uL (0-0.1); BASOPHILS % (AUTO) 0 % (0-1); CALCIUM 8.2 mg/dL (8.5-10.1); CHLORIDE 107 mmol/L (98-107); CREATININE 0.99 mg/dL (0.55-1.02); EOSINOPHILS # (AUTO) 0.16 x10^3/uL (0-0.4); EOSINOPHILS % (AUTO) 4 % (1-7); LYMPHOCYTES # (AUTO) 1.02 x10^3/uL (1-3.4); LYMPHOCYTES % (AUTO) 22 % (22-44); MD NO; MEAN CORPUSCULAR HGB CONC 33.7 g/dL (32.4-35.8); MEAN CORPUSCULAR VOLUME 106.8 fL (80-100); MEAN PLATELET VOLUME 9.2 fL (7.4-10.4); MONOCYTES % (AUTO) 13 % (2-9); NEUTROPHILS # (AUTO) 2.76 x10^3/uL (1.8-6.8); NEUTROPHILS % (AUTO) 61 % (42-75); PLATELET COUNT 145 x10^3/uL (130-400); RED CELL DISTRIBUTION WIDTH 15.7 % (9.6-15.2)
[2018-07-16 07:00] LABS: ALKALINE PHOSPHATASE 74 U/L (45-117); BILIRUBIN,TOTAL 0.3 mg/dL (0.2-1.0); TOTAL PROTEIN 4.5 g/dL (6.4-8.2)
[2018-07-16 07:44] VITALS: BP 109/68
[2018-07-16] MEDS ORDERED: MAGNESIUM SULFATE PMX 2GM/50ML 50 ML IV ONE (08:00)
[2018-07-16] MEDS ORDERED: FUROSEMIDE 20 MG/2 ML IV ONE (08:30)
[2018-07-16] MEDS: THIAMINE 100MG TABLET PO SCH (09:07)
[2018-07-16] MEDS: GABAPENTIN 300 MG CAPSULE PO SCH ×2 (09:07→20:22)
[2018-07-16] MEDS: FOLIC ACID 1 MG TABLET PO SCH (09:07)
[2018-07-16] MEDS: LIOTHYRONINE 5 MCG TABLET PO SCH (09:07)
[2018-07-16] MEDS: AMIODARONE 200 MG TABLET PO SCH (09:07)
[2018-07-16] MEDS: MULTIVITAMIN 1 TABLET PO SCH (09:07)
[2018-07-16] MEDS: CEFDINIR 300 MG CAPSULE PO SCH ×2 (09:07→20:22)
[2018-07-16] MEDS: FERROUS SULFATE 325 MG TABLET PO SCH ×2 (09:07→20:22)
[2018-07-16 13:27] LABS: ALBUMIN 2.6 g/dL (3.4-5.0); ANION GAP 7 mmol/L (5-15); CALCIUM 8.8 mg/dL (8.5-10.1); CHLORIDE 101 mmol/L (98-107)
[2018-07-16 13:29] LABS: CREATININE 1.09 mg/dL (0.55-1.02)
[2018-07-16 15:06] VITALS: BP 136/74
[2018-07-16 19:47] VITALS: BP 145/82
[2018-07-16] MEDS: ATORVASTATIN 80 MG TABLET PO SCH (20:22)
[2018-07-16 21:43] LABS: OCCULT BLOOD NEGATIVE (NEGATIVE)
[2018-07-17 02:22] VITALS: BP 127/77
[2018-07-17] MEDS: LEVOTHYROXINE 100 MCG TABLET PO SCH (05:01)
[2018-07-17 07:17] VITALS: BP 110/69
[2018-07-17] MEDS ORDERED: MAGNESIUM SULFATE PMX 2GM/50ML 50 ML IV ONE (09:00)
[2018-07-17] MEDS: FOLIC ACID 1 MG TABLET PO SCH (09:34)
[2018-07-17] MEDS: HEPARIN 5,000 UNITS/ML, 1ML SQ SCH ×3 (09:34→23:00)
[2018-07-17] MEDS: LIOTHYRONINE 5 MCG TABLET PO SCH (09:34)
[2018-07-17] MEDS: CEFDINIR 300 MG CAPSULE PO SCH ×2 (09:34→20:19)
[2018-07-17] MEDS: FERROUS SULFATE 325 MG TABLET PO SCH ×2 (09:34→20:19)
[2018-07-17] MEDS: MULTIVITAMIN 1 TABLET PO SCH (09:35)
[2018-07-17] MEDS: GABAPENTIN 300 MG CAPSULE PO SCH ×2 (09:35→20:19)
[2018-07-17] MEDS: AMIODARONE 200 MG TABLET PO SCH (09:35)
[2018-07-17] MEDS: THIAMINE 100MG TABLET PO SCH (09:35)
[2018-07-17 10:54] LABS: ANION GAP 6 mmol/L (5-15); CALCIUM 8.9 mg/dL (8.5-10.1); CHLORIDE 103 mmol/L (98-107); CREATININE 1.01 mg/dL (0.55-1.02)
[2018-07-17 12:23] VITALS: BP 139/83
[2018-07-17 19:06] VITALS: BP 117/76
[2018-07-17] MEDS: ATORVASTATIN 80 MG TABLET PO SCH (20:19)
[2018-07-18 01:01] VITALS: BP 104/66
[2018-07-18 05:35] LABS: ALBUMIN 2.1 g/dL (3.4-5.0); ANION GAP 5 mmol/L (5-15); CALCIUM 8.6 mg/dL (8.5-10.1); CHLORIDE 106 mmol/L (98-107); CREATININE 0.91 mg/dL (0.55-1.02)
[2018-07-18] MEDS: LEVOTHYROXINE 100 MCG TABLET PO SCH (06:20)
[2018-07-18] MEDS: HEPARIN 5,000 UNITS/ML, 1ML SQ SCH (06:21)
[2018-07-18 07:39] VITALS: BP 136/72
[2018-07-18] MEDS ORDERED: AMIO200T42 PO (07:47)
[2018-07-18] MEDS ORDERED: CEFD300C37 PO (07:47)
[2018-07-18] MEDS: MULTIVITAMIN 1 TABLET PO SCH (08:10)
[2018-07-18] MEDS: FERROUS SULFATE 325 MG TABLET PO SCH (08:10)
[2018-07-18] MEDS: FOLIC ACID 1 MG TABLET PO SCH (08:10)
[2018-07-18] MEDS: GABAPENTIN 300 MG CAPSULE PO SCH (08:10)
[2018-07-18] MEDS: CEFDINIR 300 MG CAPSULE PO SCH (08:10)
[2018-07-18] MEDS: LIOTHYRONINE 5 MCG TABLET PO SCH (08:10)
[2018-07-18] MEDS: THIAMINE 100MG TABLET PO SCH (08:10)
[2018-07-18] MEDS: AMIODARONE 200 MG TABLET PO SCH (08:10)
[2018-07-18 12:18] VITALS: BP 130/80
== END 2018-07-18 17:39 | disposition home health service (06) | DRG 682 ==
LOC: ED 12:26 → EDIP 13:53 → 4EST 17:42
PROVIDERS: ADMIT Internal Medicine; ATTEND Internal Medicine
DX: N17.0 Acute kidney failure with tubular necrosis (principal); E43 Unspecified severe protein-calorie malnutrition; D68.69 Other thrombophilia; N39.0 Urinary tract infection, site not specified; E87.2 Acidosis; E87.3 Alkalosis; E78.5 Hyperlipidemia, unspecified; E83.42 Hypomagnesemia; E83.52 Hypercalcemia; E86.0 Dehydration; E87.6 Hypokalemia; F10.10 Alcohol abuse, uncomplicated; F32.9 Major depressive disorder, single episode, unspecified; R11.2 Nausea with vomiting, unspecified; F41.9 Anxiety disorder, unspecified; I12.9 Hypertensive chronic kidney disease with stage 1 through stage 4 chronic kidney disease, or unspecified chronic kidney disease; I48.91 Unspecified atrial fibrillation; I80.9 Phlebitis and thrombophlebitis of unspecified site; K70.9 Alcoholic liver disease, unspecified; G89.29 Other chronic pain; N18.9 Chronic kidney disease, unspecified; M47.816 Spondylosis without myelopathy or radiculopathy, lumbar region; S82.62XA Displaced fracture of lateral malleolus of left fibula, initial encounter for closed fracture; W18.30XA Fall on same level, unspecified, initial encounter; Y93.89 Activity, other specified; Y92.89 Other specified places as the place of occurrence of the external cause; Y99.8 Other external cause status; Z79.899 Other long term (current) drug therapy; Z86.73 Personal history of transient ischemic attack (TIA), and cerebral infarction without residual deficits; Z87.11 Personal history of peptic ulcer disease; Z90.710 Acquired absence of both cervix and uterus; Z90.49 Acquired absence of other specified parts of digestive tract; Z68.32 Body mass index [BMI] 32.0-32.9, adult
CPT/HCPCS: 36415; 36600; 71275; 74018; 74177; 76700; 80048; 80053; 80307; 81001; 82010; 82040; 82272; 82436; 82607; 82803; 82962; 83036; 83605; 83690; 83735; 84100; 84133; 84145; 84300; 84439; 84443; 85025; 87040; 87077; 87086; 87186; 87324; 93005; 99285; G0378; J0696; J1644; J2405; J3480; J7070; P9047; Q9967; J1940; J3475; J7030; J7040